=== PATIENT | female | born 1985 | race Caucasian/White ===

== ENCOUNTER 2018-08-27 20:41 | Inpatient (IN) | payer OTHER, BC ==
[~2018-08-27] VITALS: Ht 165.1 cm; Wt 59.6 kg
[2018-08-27] MEDS ORDERED: SODIUM CHLORIDE 0.9% 1,000ML IVBOLUS ONE (21:00)
[2018-08-27] MEDS ORDERED: ONDANSETRON 2MG/ML, 2ML IVPush ONE (21:00)
[2018-08-27] MEDS ORDERED: FAMOTIDINE 20 MG/2 ML IVP ONE (21:00)
--- NOTE | 2018-08-27 21:09 | NUR ---
FIRST CONTACT WITH PT. 32 YR OLD FEMALE HERE WITH C/O N/V/DEHYDRATION x 9 days. DENIES OTHER S/S AT THIS TIME. PT AOX4. RESPS EVEN AND UNLABORED. CALL LIGHT WITHIN REACH. WARM BLANKET PROVIDED.
--- NOTE | 2018-08-27 21:33 | NUR ---
EDMD AT BED SIDE. PT RESTING IN [facility]. AOX4. RESPS EVEN AND UNLABORED. CALL LIGHT WITHIN REACH. DENIES ANY NEEDS AND CONCERNS AT THIS TIME.
[2018-08-27] MEDS ORDERED: NS + 20MEQ KCL 1,000 ML IV SCH (21:44)
[2018-08-27] MEDS ORDERED: FAMOTIDINE 20 MG/2 ML ONE (21:44)
[2018-08-27] MEDS ORDERED: POLYETHYLENE GLYCOL 17 GM PACKET PO PRN (22:00)
[2018-08-27] MEDS ORDERED: PROMETHAZINE 25 MG/ML, 1ML IM PRN (22:00)
[2018-08-27] MEDS ORDERED: DOCUSATE 100 MG CAPSULE PO PRN (22:00)
[2018-08-27] MEDS: ENOXAPARIN 40 MG/0.4 ML SQ SCH (22:00)
[2018-08-27] MEDS ORDERED: ZIPRASIDONE 20MG CAPSULE PO PRN (22:00)
--- NOTE | 2018-08-27 22:06 | NUR ---
REPORT GIVEN TO ALEXANDRU ALVES
[2018-08-27] MEDS ORDERED: ONDA8TAB9 PO (22:10)
--- NOTE | 2018-08-27 22:20 | NUR ---
PT'S PIV (PLACED ACCOUNT MANAGER TRAINEE) PATENT AND TOLERATING FLUSH WITH NO S/SX INFILTRATION. AFTER PEPCID ADMIN, PIV SITE BECAME SWOLLEN AND PAINFUL. PIV REMOVED. WARM COMPRESS APPLIED. NEW PIV PLACED, COBAN/PAPER TAPE/STERILE GAUZE DRESSING APPLIED (PT ALLERGIC TO ADHESIVE TAPE AND TEGADERM). NS BOLUS INFUSING IN NEW PIV, NO S/SX INFILTRATION. ALEXANDRU PARRISH CALLED TO GIVE UPDATED REPORT.
--- NOTE | 2018-08-27 22:27 | NUR ---
PER ADAM OSHEA, NO EKG INDICATED FOR PT C/O EPIGASTRIC PAIN. EKG TAKEN USER SUPPORT ANALYST SUPERVISOR AT [facility], REVEIWED BY ADAM OSHEA.
[2018-08-27] MEDS ORDERED: SUMA50TA3 PO (23:21)
[2018-08-27] MEDS ORDERED: FLUT9.9S NS (23:21)
[2018-08-27 23:22] VITALS: BP 118/81
[2018-08-28 02:15] VITALS: BP 110/73
[2018-08-28 05:27] LABS: BASOPHILS # (AUTO) 0.03 x10^3/uL (0-0.1); BASOPHILS % (AUTO) 0 % (0-1); EOSINOPHILS # (AUTO) 0.14 x10^3/uL (0-0.4); EOSINOPHILS % (AUTO) 2 % (1-7); LYMPHOCYTES # (AUTO) 2.71 x10^3/uL (1-3.4); LYMPHOCYTES % (AUTO) 46 % (22-44); MD NO; MEAN CORPUSCULAR HEMOGLOBIN 31.4 pg (27.0-34.8); MEAN CORPUSCULAR HGB CONC 34.4 g/dL (32.4-35.8); MEAN CORPUSCULAR VOLUME 91.3 fL (80-100); MEAN PLATELET VOLUME 8.2 fL (7.4-10.4); MONOCYTES % (AUTO) 10 % (2-9); NEUTROPHILS # (AUTO) 2.36 x10^3/uL (1.8-6.8); NEUTROPHILS % (AUTO) 41 % (42-75); PLATELET COUNT 165 x10^3/uL (130-400); RED BLOOD COUNT 4.07 x10^6/uL (3.82-5.3)
[2018-08-28 05:30] LABS: ANION GAP 9 mmol/L (5-15); CALCIUM 7.5 mg/dL (8.5-10.1); CHLORIDE 112 mmol/L (98-107)
[2018-08-28 05:31] LABS: CREATININE 0.57 mg/dL (0.55-1.02)
[2018-08-28 08:19] VITALS: BP 104/66
[2018-08-28] MEDS ORDERED: MAGNESIUM SULFATE PMX 2GM/50ML 50 ML IV ONE (09:00)
[2018-08-28] MEDS: ONDANSETRON 2MG/ML, 2ML IVPush PRN ×3 (09:48→23:43)
[2018-08-28] MEDS: FAMOTIDINE 20 MG TABLET PO SCH ×2 (09:48→20:27)
[2018-08-28 13:13] VITALS: BP 111/74
[2018-08-28] MEDS: D5%-0.45% NACL 1,000 ML IV SCH (16:24)
[2018-08-28 20:08] VITALS: BP 106/65
[2018-08-28] MEDS: ENOXAPARIN 40 MG/0.4 ML SQ SCH (21:22)
[2018-08-28 21:58] LABS: MICROSCOPIC NOT IND
[2018-08-28 22:02] LABS: CULTURE INDICATED? NO
[2018-08-29 01:44] VITALS: BP 115/79
[2018-08-29] MEDS: D5%-0.45% NACL 1,000 ML IV SCH ×2 (04:48→18:12)
[2018-08-29 06:07] LABS: ALANINE AMINOTRANSFERASE 75 U/L (12-78); ALBUMIN 2.4 g/dL (3.4-5.0); ANION GAP 9 mmol/L (5-15); CALCIUM 7.5 mg/dL (8.5-10.1); CHLORIDE 112 mmol/L (98-107); CREATININE 0.49 mg/dL (0.55-1.02)
[2018-08-29 06:10] LABS: ALKALINE PHOSPHATASE 76 U/L (45-117); BILIRUBIN,TOTAL 0.6 mg/dL (0.2-1.0); TOTAL PROTEIN 4.7 g/dL (6.4-8.2)
[2018-08-29 07:31] VITALS: BP 100/66
[2018-08-29] MEDS: FAMOTIDINE 20 MG TABLET PO SCH ×2 (08:27→21:35)
[2018-08-29] MEDS: ONDANSETRON 2MG/ML, 2ML IVPush PRN (09:29)
[2018-08-29] MEDS ORDERED: ONDANSETRON ODT 8 MG PO ONE (11:00)
[2018-08-29] MEDS ORDERED: SODIUM BICARB 8.4%, 50ML SYRINGE ONE (11:35)
[2018-08-29] MEDS ORDERED: EPINEPHRINE SYRINGE 0.1 MG/ML, 10ML ONE (11:35)
[2018-08-29] MEDS ORDERED: PROPOFOL 100 ML IV ONE (12:04)
[2018-08-29 12:17] LABS: MD YES; MEAN CORPUSCULAR HEMOGLOBIN 30.3 pg (27.0-34.8); MEAN CORPUSCULAR HGB CONC 33.1 g/dL (32.4-35.8); MEAN CORPUSCULAR VOLUME 91.4 fL (80-100); MEAN PLATELET VOLUME 8.6 fL (7.4-10.4); PLATELET COUNT 132 x10^3/uL (130-400); RED BLOOD COUNT 4.61 x10^6/uL (3.82-5.3); RED CELL DISTRIBUTION WIDTH 14.1 % (9.6-15.2)
[2018-08-29 12:19] LABS: ALANINE AMINOTRANSFERASE 218 U/L (12-78); ALBUMIN 2.3 g/dL (3.4-5.0); ANION GAP 11 mmol/L (5-15); CALCIUM 7.1 mg/dL (8.5-10.1); CHLORIDE 111 mmol/L (98-107); CREATININE 0.71 mg/dL (0.55-1.02)
[2018-08-29 12:24] LABS: ALKALINE PHOSPHATASE 80 U/L (45-117); BILIRUBIN,TOTAL 0.5 mg/dL (0.2-1.0); TOTAL PROTEIN 4.5 g/dL (6.4-8.2); TROPONIN I 0.034 ng/mL (0.000-0.045)
[2018-08-29 12:48] LABS: <PLATELET ESTIMATE> ADEQUATE; <PLT MORPHOLOGY> NORMAL PLT MORPH; <RBC MORPHOLOGY> NORMAL; EOS#(MANUAL) 0.07 x10^3/uL (0.0-0.4); EOS% (MANUAL) 1 % (1-7); LYMPH#(MANUAL) 5.95 x10^3/uL (1-3.4); LYMPHS% (MANUAL) 85 % (22-44); MONOS#(MANUAL) 0.14 x10^3/uL (0.3-2.7); MONOS% (MANUAL) 2 % (2-9); REACTIVE LYMPHS # (MANUAL) 0.42 x10^3/uL (0-0); REACTIVE LYMPHS % (MANUAL) 6 % (0-0); SEG#(MANUAL) 0.42 x10^3/uL (1.8-6.8); SEGS% (MANUAL) 6 % (42-75)
[2018-08-29 13:00] LABS: AMPHETAMINE SCREEN, URINE Negative (Negative); BARBITURATE SCREEN, URINE Negative (Negative); BENZODIAZEPINE SCREEN, URINE Negative (Negative); CANNABINOID SCREEN, URINE Positive (Negative); COCAINE SCREEN, URINE Negative (Negative); METHADONE SCREEN, URINE Negative (Negative); OPIATE SCREEN, URINE Negative (Negative)
[2018-08-29] MEDS ORDERED: DEXMEDETOMIDINE 200 MCG in SODIUM CHLORIDE 0.9% 48 ML IV PRN (13:07)
[2018-08-29] MEDS ORDERED: SODIUM PHOSPHATE 20 MMOL in SODIUM CHLORIDE 0.9% 250 ML IVPB PRN (13:07)
[2018-08-29] MEDS ORDERED: PROPOFOL 100 ML IV PRN (13:07)
[2018-08-29] MEDS ORDERED: MIDAZOLAM HCL 25 MG in SODIUM CHLORIDE 0.9% 245 ML IV PRN (13:07)
[2018-08-29] MEDS: METRONIDAZOLE PMX 500MG/100ML 100 ML IV SCH ×2 (13:11→20:42)
[2018-08-29] MEDS: CALCIUM CHLORIDE 13.6 MEQ in DEXTROSE 5% 100 ML IVPB SCH ×2 (13:30→19:30)
[2018-08-29] MEDS ORDERED: VECURONIUM 10 MG IVPush PRN (13:30)
[2018-08-29] MEDS ORDERED: MIDAZOLAM 1 MG/ML, 2ML IVPush PRN (13:30)
[2018-08-29] MEDS: KSCALE TO 4.0 IV SCH ×3 (13:30→21:27)
[2018-08-29] MEDS: ARTIFICIAL TEARS OINT 3.5 GM EACHEYE SCH ×2 (13:30→21:56)
[2018-08-29] MEDS ORDERED: LIDOCAINE-MPF 1%, 2ML ENDO PRN (13:30)
[2018-08-29] MEDS ORDERED: SENNA/DOCUSATE TABLET NG PRN (13:30)
[2018-08-29] MEDS ORDERED: PHARMACY MAY ADJ FOR RENAL FX MC SCH (13:30)
[2018-08-29] MEDS: LORazepam 2 MG/ML, 1ML IVPush PRN (13:36)
[2018-08-29 13:51] LABS: MICROSCOPIC INDICATED
[2018-08-29] MEDS ORDERED: MAGNESIUM SULFATE 4 GM in SODIUM CHLORIDE 0.9% 100 ML IV ONE (14:00)
[2018-08-29 14:13] LABS: AMPHETAMINE SCREEN, URINE Negative (Negative); BARBITURATE SCREEN, URINE Negative (Negative); BENZODIAZEPINE SCREEN, URINE Negative (Negative); CANNABINOID SCREEN, URINE Positive (Negative); COCAINE SCREEN, URINE Negative (Negative); METHADONE SCREEN, URINE Negative (Negative); OPIATE SCREEN, URINE Negative (Negative)
[2018-08-29] MEDS ORDERED: POTASSIUM CHLORIDE PMX 100 ML IV ONE ×3 (14:30→22:00)
[2018-08-29] MEDS: BUSPIRONE 10 MG TABLET NG SCH ×2 (15:42→21:34)
[2018-08-29] MEDS: LEVETIRACETAM 1,000 MG in SODIUM CHLORIDE 0.9% 100 ML IV SCH ×2 (15:50→23:20)
[2018-08-29] MEDS: CEFTRIAXONE PMX 1GM/50ML 50 ML IV SCH (16:29)
[2018-08-29] MEDS: ALBUTEROL/IPRATROPIUM 2.5MG/0.5MG, 3 ML INLINE SCH ×3 (17:30→22:40)
[2018-08-29] MEDS: PROPOFOL 100 ML IV PRN ×2 (17:38→23:20)
[2018-08-29] MEDS ORDERED: POTASSIUM CHLORIDE 30 MEQ in SODIUM CHLORIDE 0.9% 100 ML IV ONE (18:00)
[2018-08-29] MEDS ORDERED: REGULAR INSULIN 62.5 UNITS in SODIUM CHLORIDE 0.9% 249.375 ML IV PRN (18:30)
[2018-08-29 20:00] LABS: FIO2 40 %
[2018-08-29] MEDS: ENOXAPARIN 40 MG/0.4 ML SQ SCH (21:35)
[2018-08-29] MEDS: FENTANYL PF 100 MCG/2ML IVPush PRN (22:30)
[2018-08-30 00:40] LABS: TROPONIN I 0.686 ng/mL (0.000-0.045)
[2018-08-30] MEDS ORDERED: POTASSIUM CHLORIDE PMX 100 ML IV ONE ×6 (01:30→21:30)
[2018-08-30] MEDS: CALCIUM CHLORIDE 13.6 MEQ in DEXTROSE 5% 100 ML IVPB SCH ×4 (01:30→19:30)
[2018-08-30] MEDS: KSCALE TO 4.0 IV SCH ×6 (01:30→21:30)
[2018-08-30] MEDS: ALBUTEROL/IPRATROPIUM 2.5MG/0.5MG, 3 ML INLINE SCH ×6 (02:50→22:50)
[2018-08-30] MEDS: METRONIDAZOLE PMX 500MG/100ML 100 ML IV SCH ×3 (03:52→19:36)
[2018-08-30] MEDS: PROPOFOL 100 ML IV PRN ×5 (03:52→23:33)
[2018-08-30 04:00] VITALS: BP_SYST 102; BP_SYST 95; BP_DIAS 60; BP_DIAS 69
[2018-08-30] MEDS: NOREPINEPHRINE 4 MG in SODIUM CHLORIDE 0.9% 246 ML IV PRN ×2 (04:51→18:30)
[2018-08-30 05:39] LABS: BASOPHILS # (AUTO) 0.02 x10^3/uL (0-0.1); BASOPHILS % (AUTO) 0 % (0-1); EOSINOPHILS # (AUTO) 0.01 x10^3/uL (0-0.4); EOSINOPHILS % (AUTO) 0 % (1-7); LYMPHOCYTES # (AUTO) 1.11 x10^3/uL (1-3.4); LYMPHOCYTES % (AUTO) 19 % (22-44); MD NO; MEAN CORPUSCULAR HEMOGLOBIN 30.5 pg (27.0-34.8); MEAN CORPUSCULAR HGB CONC 33.5 g/dL (32.4-35.8); MEAN CORPUSCULAR VOLUME 91.1 fL (80-100); MONOCYTES # (AUTO) 0.39 x10^3/uL (0.2-0.8); MONOCYTES % (AUTO) 7 % (2-9); NEUTROPHILS # (AUTO) 4.32 x10^3/uL (1.8-6.8); NEUTROPHILS % (AUTO) 74 % (42-75); PLATELET COUNT 119 x10^3/uL (130-400); RED BLOOD COUNT 4.03 x10^6/uL (3.82-5.3); RED CELL DISTRIBUTION WIDTH 13.9 % (9.6-15.2)
[2018-08-30] MEDS: BUSPIRONE 10 MG TABLET NG SCH ×3 (05:43→21:36)
[2018-08-30] MEDS: ARTIFICIAL TEARS OINT 3.5 GM EACHEYE SCH ×3 (05:43→19:51)
[2018-08-30 05:53] LABS: CHLORIDE 115 mmol/L (98-107)
[2018-08-30 06:08] LABS: ALANINE AMINOTRANSFERASE 188 U/L (12-78); ALBUMIN 2.3 g/dL (3.4-5.0); ALKALINE PHOSPHATASE 79 U/L (45-117); ANION GAP 8 mmol/L (5-15); CALCIUM 6.4 mg/dL (8.5-10.1); CREATININE 0.29 mg/dL (0.55-1.02); TOTAL PROTEIN 4.4 g/dL (6.4-8.2)
[2018-08-30] MEDS: MAGNESIUM SULFATE 1 GM in SODIUM CHLORIDE 0.9% 50 ML IVPB PRN ×2 (06:35→10:59)
[2018-08-30] MEDS: FAMOTIDINE 20 MG TABLET PO SCH (09:00)
[2018-08-30] MEDS ORDERED: PANTOPRAZOLE 40 MG IV IV SCH (09:00)
[2018-08-30] MEDS: FENTANYL PF 250 MCG in SODIUM CHLORIDE 0.9% 250 ML IV PRN ×2 (10:23→20:02)
[2018-08-30] MEDS ORDERED: GLUCAGON 1 MG IM PRN (10:30)
[2018-08-30] MEDS ORDERED: DEXTROSE 50%, 50ML SYRINGE IVPush PRN (10:30)
[2018-08-30] MEDS: INSULIN LISPRO 100 UNITS/ML, PEN SQ-INSULIN SCH ×3 (14:00→20:43)
[2018-08-30] MEDS: LEVETIRACETAM 1,000 MG in SODIUM CHLORIDE 0.9% 100 ML IV SCH ×2 (14:16→23:33)
[2018-08-30] MEDS: D5%-0.45% NACL 1,000 ML IV SCH (14:19)
[2018-08-30] MEDS: CEFTRIAXONE PMX 1GM/50ML 50 ML IV SCH (17:52)
[2018-08-30] MEDS: SODIUM CHLORIDE FLUSH 10ML SYR IVF SCH (19:36)
[2018-08-30] MEDS: FAMOTIDINE 20 MG/2 ML IVPush SCH (19:36)
[2018-08-30] MEDS: ENOXAPARIN 40 MG/0.4 ML SQ SCH (21:36)
[2018-08-31] MEDS: INSULIN LISPRO 100 UNITS/ML, PEN SQ-INSULIN SCH ×6 (00:59→22:00)
[2018-08-31] MEDS: CALCIUM CHLORIDE 13.6 MEQ in DEXTROSE 5% 100 ML IVPB SCH ×4 (01:30→20:49)
[2018-08-31] MEDS: KSCALE TO 4.0 IV SCH ×6 (01:30→21:30)
[2018-08-31] MEDS: D5%-0.45% NACL 1,000 ML IV SCH ×3 (01:31→20:28)
[2018-08-31] MEDS: FENTANYL PF 250 MCG in SODIUM CHLORIDE 0.9% 245 ML IV PRN ×2 (01:32→05:34)
[2018-08-31] MEDS: MAGNESIUM SULFATE 1 GM in SODIUM CHLORIDE 0.9% 50 ML IVPB PRN ×3 (01:49→19:04)
[2018-08-31] MEDS ORDERED: POTASSIUM CHLORIDE PMX 100 ML IV ONE ×4 (02:00→18:30)
[2018-08-31] MEDS: ALBUTEROL/IPRATROPIUM 2.5MG/0.5MG, 3 ML INLINE SCH ×6 (02:40→23:00)
[2018-08-31] MEDS: METRONIDAZOLE PMX 500MG/100ML 100 ML IV SCH ×3 (03:24→19:43)
[2018-08-31] MEDS: ARTIFICIAL TEARS OINT 3.5 GM EACHEYE SCH ×3 (04:41→20:27)
[2018-08-31] MEDS: BUSPIRONE 10 MG TABLET NG SCH ×3 (04:45→20:27)
[2018-08-31 05:17] LABS: ANION GAP 8 mmol/L (5-15); CALCIUM 7.1 mg/dL (8.5-10.1); CHLORIDE 119 mmol/L (98-107); CREATININE 0.43 mg/dL (0.55-1.02)
[2018-08-31 05:23] LABS: BASOPHILS # (AUTO) 0.04 x10^3/uL (0-0.1); BASOPHILS % (AUTO) 1 % (0-1); EOSINOPHILS # (AUTO) 0.36 x10^3/uL (0-0.4); EOSINOPHILS % (AUTO) 5 % (1-7); LYMPHOCYTES # (AUTO) 1.45 x10^3/uL (1-3.4); LYMPHOCYTES % (AUTO) 18 % (22-44); MD NO; MEAN CORPUSCULAR HEMOGLOBIN 30.8 pg (27.0-34.8); MEAN CORPUSCULAR HGB CONC 33.3 g/dL (32.4-35.8); MEAN CORPUSCULAR VOLUME 92.7 fL (80-100); MEAN PLATELET VOLUME 8.6 fL (7.4-10.4); MONOCYTES # (AUTO) 0.48 x10^3/uL (0.2-0.8); MONOCYTES % (AUTO) 6 % (2-9); NEUTROPHILS # (AUTO) 5.71 x10^3/uL (1.8-6.8); NEUTROPHILS % (AUTO) 71 % (42-75); PLATELET COUNT 137 x10^3/uL (130-400); RED BLOOD COUNT 4.06 x10^6/uL (3.82-5.3); RED CELL DISTRIBUTION WIDTH 14.6 % (9.6-15.2)
[2018-08-31] MEDS: SODIUM CHLORIDE FLUSH 10ML SYR IVF SCH ×2 (09:22→20:27)
[2018-08-31] MEDS: FAMOTIDINE 20 MG/2 ML IVPush SCH ×2 (09:22→20:27)
[2018-08-31] MEDS: PROPOFOL 100 ML IV PRN ×3 (09:29→20:27)
[2018-08-31] MEDS ORDERED: GADOBUTROL 7.5 MMOL/7.5 ML PFS ONE (14:38)
[2018-08-31] MEDS: LEVETIRACETAM 1,000 MG in SODIUM CHLORIDE 0.9% 100 ML IV SCH (15:38)
[2018-08-31] MEDS: CEFTRIAXONE PMX 1GM/50ML 50 ML IV SCH (15:40)
[2018-09-01] MEDS: LEVETIRACETAM 1,000 MG in SODIUM CHLORIDE 0.9% 100 ML IV SCH (00:59)
[2018-09-01] MEDS: KSCALE TO 4.0 IV SCH ×2 (01:30→05:30)
[2018-09-01] MEDS: CALCIUM CHLORIDE 13.6 MEQ in DEXTROSE 5% 100 ML IVPB SCH ×2 (01:55→05:38)
[2018-09-01] MEDS ORDERED: MAGNESIUM SULFATE 1 GM in SODIUM CHLORIDE 0.9% 50 ML IV ONE ×2 (02:00→05:30)
[2018-09-01] MEDS: INSULIN LISPRO 100 UNITS/ML, PEN SQ-INSULIN SCH ×6 (02:00→21:33)
[2018-09-01] MEDS: ALBUTEROL/IPRATROPIUM 2.5MG/0.5MG, 3 ML INLINE SCH ×6 (02:30→23:03)
[2018-09-01] MEDS ORDERED: POTASSIUM CHLORIDE PMX 100 ML IV ONE (02:30)
[2018-09-01] MEDS: PROPOFOL 100 ML IV PRN ×2 (02:53→04:40)
[2018-09-01] MEDS: ARTIFICIAL TEARS OINT 3.5 GM EACHEYE SCH ×3 (04:00→21:29)
[2018-09-01] MEDS: METRONIDAZOLE PMX 500MG/100ML 100 ML IV SCH ×3 (04:00→19:38)
[2018-09-01] MEDS: BUSPIRONE 10 MG TABLET NG SCH (04:01)
[2018-09-01] MEDS: HEPARIN 5,000 UNITS/ML, 1ML SQ SCH ×3 (04:40→21:29)
[2018-09-01 05:09] LABS: BASOPHILS # (AUTO) 0.04 x10^3/uL (0-0.1); BASOPHILS % (AUTO) 1 % (0-1); EOSINOPHILS # (AUTO) 0.16 x10^3/uL (0-0.4); EOSINOPHILS % (AUTO) 3 % (1-7); LYMPHOCYTES # (AUTO) 1.92 x10^3/uL (1-3.4); LYMPHOCYTES % (AUTO) 34 % (22-44); MD NO; MEAN CORPUSCULAR HEMOGLOBIN 30.7 pg (27.0-34.8); MEAN CORPUSCULAR HGB CONC 33.9 g/dL (32.4-35.8); MEAN CORPUSCULAR VOLUME 90.4 fL (80-100); MEAN PLATELET VOLUME 8.6 fL (7.4-10.4); MONOCYTES # (AUTO) 0.35 x10^3/uL (0.2-0.8); MONOCYTES % (AUTO) 6 % (2-9); NEUTROPHILS # (AUTO) 3.15 x10^3/uL (1.8-6.8); NEUTROPHILS % (AUTO) 56 % (42-75); PLATELET COUNT 140 x10^3/uL (130-400); RED BLOOD COUNT 4.18 x10^6/uL (3.82-5.3); RED CELL DISTRIBUTION WIDTH 14.6 % (9.6-15.2)
[2018-09-01 05:13] LABS: ANION GAP 9 mmol/L (5-15); CALCIUM 8.3 mg/dL (8.5-10.1); CHLORIDE 117 mmol/L (98-107); CREATININE 0.47 mg/dL (0.55-1.02); TRIGLYCERIDES 81 mg/dL (50-200)
[2018-09-01] MEDS: MAGNESIUM SULFATE 1 GM in SODIUM CHLORIDE 0.9% 50 ML IVPB PRN ×4 (05:38→05:58)
[2018-09-01] MEDS: D5%-0.45% NACL 1,000 ML IV SCH ×3 (05:44→21:33)
[2018-09-01 06:00] VITALS: BP 125/85
[2018-09-01] MEDS ORDERED: QUETIAPINE 25MG TABLET PO SCH (07:30)
[2018-09-01] MEDS: DEXMEDETOMIDINE 200 MCG in SODIUM CHLORIDE 0.9% 48 ML IV PRN ×3 (08:54→19:39)
[2018-09-01] MEDS: CALCIUM CARBONATE 500 MG TAB.CHEW PO SCH ×3 (09:48→19:41)
[2018-09-01] MEDS: FAMOTIDINE 20 MG/2 ML IVPush SCH ×2 (09:48→21:28)
[2018-09-01] MEDS: SODIUM CHLORIDE FLUSH 10ML SYR IVF SCH ×2 (09:49→19:39)
[2018-09-01] MEDS: NOREPINEPHRINE 4 MG in SODIUM CHLORIDE 0.9% 246 ML IV PRN (13:18)
[2018-09-01] MEDS: CEFTRIAXONE PMX 1GM/50ML 50 ML IV SCH (15:44)
[2018-09-02] MEDS: CALCIUM CARBONATE 500 MG TAB.CHEW PO SCH ×4 (01:20→20:58)
[2018-09-02] MEDS: INSULIN LISPRO 100 UNITS/ML, PEN SQ-INSULIN SCH ×6 (02:00→21:03)
[2018-09-02] MEDS: ALBUTEROL/IPRATROPIUM 2.5MG/0.5MG, 3 ML INLINE SCH ×6 (03:09→22:16)
[2018-09-02] MEDS: METRONIDAZOLE PMX 500MG/100ML 100 ML IV SCH ×3 (04:00→20:59)
[2018-09-02] MEDS: ARTIFICIAL TEARS OINT 3.5 GM EACHEYE SCH (04:00)
[2018-09-02] MEDS: NOREPINEPHRINE 4 MG in SODIUM CHLORIDE 0.9% 246 ML IV PRN (04:01)
[2018-09-02] MEDS: D5%-0.45% NACL 1,000 ML IV SCH ×2 (05:02→14:01)
[2018-09-02] MEDS: HEPARIN 5,000 UNITS/ML, 1ML SQ SCH ×3 (05:03→20:59)
[2018-09-02 05:36] LABS: BASOPHILS # (AUTO) 0.02 x10^3/uL (0-0.1); BASOPHILS % (AUTO) 0 % (0-1); EOSINOPHILS # (AUTO) 0.22 x10^3/uL (0-0.4); EOSINOPHILS % (AUTO) 4 % (1-7); LYMPHOCYTES % (AUTO) 21 % (22-44); MD NO; MEAN CORPUSCULAR HEMOGLOBIN 31.3 pg (27.0-34.8); MEAN CORPUSCULAR HGB CONC 34.4 g/dL (32.4-35.8); MEAN CORPUSCULAR VOLUME 91.1 fL (80-100); MEAN PLATELET VOLUME 8.2 fL (7.4-10.4); MONOCYTES # (AUTO) 0.51 x10^3/uL (0.2-0.8); MONOCYTES % (AUTO) 8 % (2-9); NEUTROPHILS # (AUTO) 4.11 x10^3/uL (1.8-6.8); NEUTROPHILS % (AUTO) 67 % (42-75); PLATELET COUNT 140 x10^3/uL (130-400); RED BLOOD COUNT 3.79 x10^6/uL (3.82-5.3); RED CELL DISTRIBUTION WIDTH 14.6 % (9.6-15.2)
[2018-09-02 05:48] LABS: ANION GAP 9 mmol/L (5-15); CALCIUM 7.3 mg/dL (8.5-10.1); CHLORIDE 110 mmol/L (98-107); CREATININE 0.44 mg/dL (0.55-1.02)
[2018-09-02] MEDS ORDERED: MAGNESIUM SULFATE PMX 2GM/50ML 50 ML IV ONE ×2 (06:00→08:00)
[2018-09-02] MEDS ORDERED: MAGNESIUM SULFATE PMX 4GM/100M 100 ML IV ONE (07:30)
[2018-09-02] MEDS: DEXMEDETOMIDINE 200 MCG in SODIUM CHLORIDE 0.9% 48 ML IV PRN ×2 (08:05→21:03)
[2018-09-02] MEDS: FAMOTIDINE 20 MG/2 ML IVPush SCH ×2 (08:48→20:59)
[2018-09-02] MEDS: MIDODRINE 5 MG TABLET PO SCH ×3 (08:49→20:58)
[2018-09-02] MEDS: SODIUM CHLORIDE FLUSH 10ML SYR IVF SCH ×2 (11:24→20:58)
[2018-09-02] MEDS: CEFTRIAXONE PMX 1GM/50ML 50 ML IV SCH (15:07)
[2018-09-03] MEDS: INSULIN LISPRO 100 UNITS/ML, PEN SQ-INSULIN SCH ×6 (01:34→19:40)
[2018-09-03] MEDS: CALCIUM CARBONATE 500 MG TAB.CHEW PO SCH ×4 (01:34→19:30)
[2018-09-03] MEDS: ALBUTEROL/IPRATROPIUM 2.5MG/0.5MG, 3 ML INLINE SCH ×6 (02:23→22:13)
[2018-09-03] MEDS: D5%-0.45% NACL 1,000 ML IV SCH ×3 (03:04→21:43)
[2018-09-03] MEDS: METRONIDAZOLE PMX 500MG/100ML 100 ML IV SCH ×3 (04:48→19:39)
[2018-09-03] MEDS: HEPARIN 5,000 UNITS/ML, 1ML SQ SCH ×3 (04:55→22:32)
[2018-09-03 05:17] LABS: BASOPHILS # (AUTO) 0.01 x10^3/uL (0-0.1); BASOPHILS % (AUTO) 0 % (0-1); EOSINOPHILS # (AUTO) 0.08 x10^3/uL (0-0.4); EOSINOPHILS % (AUTO) 1 % (1-7); LYMPHOCYTES # (AUTO) 1.37 x10^3/uL (1-3.4); LYMPHOCYTES % (AUTO) 24 % (22-44); MD NO; MEAN CORPUSCULAR HEMOGLOBIN 30.5 pg (27.0-34.8); MEAN CORPUSCULAR HGB CONC 33.7 g/dL (32.4-35.8); MEAN CORPUSCULAR VOLUME 90.4 fL (80-100); MEAN PLATELET VOLUME 7.8 fL (7.4-10.4); MONOCYTES # (AUTO) 0.33 x10^3/uL (0.2-0.8); MONOCYTES % (AUTO) 6 % (2-9); NEUTROPHILS # (AUTO) 3.84 x10^3/uL (1.8-6.8); NEUTROPHILS % (AUTO) 68 % (42-75); PLATELET COUNT 133 x10^3/uL (130-400); RED BLOOD COUNT 3.58 x10^6/uL (3.82-5.3); RED CELL DISTRIBUTION WIDTH 14.3 % (9.6-15.2)
[2018-09-03 05:29] LABS: ANION GAP 8 mmol/L (5-15); CALCIUM 7.2 mg/dL (8.5-10.1); CHLORIDE 110 mmol/L (98-107); CREATININE 0.41 mg/dL (0.55-1.02)
[2018-09-03] MEDS: MIDODRINE 5 MG TABLET PO SCH ×3 (08:35→20:00)
[2018-09-03] MEDS: SODIUM CHLORIDE FLUSH 10ML SYR IVF SCH ×2 (08:35→19:40)
[2018-09-03] MEDS: FAMOTIDINE 20 MG/2 ML IVPush SCH ×2 (08:35→19:40)
[2018-09-03 08:38] LABS: ALANINE AMINOTRANSFERASE 55 U/L (12-78); ALBUMIN 1.8 g/dL (3.4-5.0)
[2018-09-03 08:39] LABS: ALKALINE PHOSPHATASE 89 U/L (45-117); BILIRUBIN,TOTAL 0.3 mg/dL (0.2-1.0); TOTAL PROTEIN 3.8 g/dL (6.4-8.2)
--- NOTE | 2018-09-03 10:00 | NUR ---
TF GOAL: PROMOTE @ 65ML/HR
[2018-09-03] MEDS: CEFTRIAXONE PMX 1GM/50ML 50 ML IV SCH (15:37)
[2018-09-03] MEDS: FENTANYL PF 100 MCG/2ML IVPush PRN (21:44)
[2018-09-03] MEDS: LORazepam 2 MG/ML, 1ML IVPush PRN (22:31)
[2018-09-04] MEDS: CALCIUM CARBONATE 500 MG TAB.CHEW PO SCH (01:30)
[2018-09-04] MEDS: INSULIN LISPRO 100 UNITS/ML, PEN SQ-INSULIN SCH ×6 (02:00→20:08)
[2018-09-04] MEDS: ALBUTEROL/IPRATROPIUM 2.5MG/0.5MG, 3 ML INLINE SCH ×6 (02:14→22:50)
[2018-09-04] MEDS: METRONIDAZOLE PMX 500MG/100ML 100 ML IV SCH ×3 (04:47→20:38)
[2018-09-04 05:11] LABS: BASOPHILS # (AUTO) 0.02 x10^3/uL (0-0.1); BASOPHILS % (AUTO) 0 % (0-1); EOSINOPHILS # (AUTO) 0.11 x10^3/uL (0-0.4); EOSINOPHILS % (AUTO) 2 % (1-7); LYMPHOCYTES # (AUTO) 1.99 x10^3/uL (1-3.4); LYMPHOCYTES % (AUTO) 38 % (22-44); MD NO; MEAN CORPUSCULAR HEMOGLOBIN 30.9 pg (27.0-34.8); MEAN CORPUSCULAR HGB CONC 34.1 g/dL (32.4-35.8); MEAN CORPUSCULAR VOLUME 90.8 fL (80-100); MEAN PLATELET VOLUME 7.4 fL (7.4-10.4); MONOCYTES # (AUTO) 0.44 x10^3/uL (0.2-0.8); MONOCYTES % (AUTO) 8 % (2-9); NEUTROPHILS # (AUTO) 2.66 x10^3/uL (1.8-6.8); NEUTROPHILS % (AUTO) 51 % (42-75); PLATELET COUNT 147 x10^3/uL (130-400); RED BLOOD COUNT 3.78 x10^6/uL (3.82-5.3); RED CELL DISTRIBUTION WIDTH 14.4 % (9.6-15.2)
[2018-09-04 05:20] LABS: ALBUMIN 2.1 g/dL (3.4-5.0); ANION GAP 8 mmol/L (5-15); CALCIUM 7.9 mg/dL (8.5-10.1); CHLORIDE 107 mmol/L (98-107)
[2018-09-04 05:24] LABS: ALANINE AMINOTRANSFERASE 48 U/L (12-78); ALKALINE PHOSPHATASE 92 U/L (45-117); BILIRUBIN,TOTAL 0.4 mg/dL (0.2-1.0); CREATININE 0.56 mg/dL (0.55-1.02); TOTAL PROTEIN 4.7 g/dL (6.4-8.2); TRIGLYCERIDES 103 mg/dL (50-200)
[2018-09-04] MEDS: HEPARIN 5,000 UNITS/ML, 1ML SQ SCH ×3 (06:01→20:38)
[2018-09-04] MEDS ORDERED: POTASSIUM CHLORIDE 20 MEQ TAB.ER.PRT PO ONE (08:30)
[2018-09-04] MEDS ORDERED: SODIUM CHLORIDE 0.9%, 500ML IVBOLUS ONE (08:30)
[2018-09-04] MEDS ORDERED: MAGNESIUM SULFATE 4 GM in SODIUM CHLORIDE 0.9% 100 ML IV ONE (08:30)
[2018-09-04] MEDS ORDERED: POTASSIUM PHOSPHATE 44 MEQ in SODIUM CHLORIDE 0.9% 500 ML IV ONE (08:30)
[2018-09-04] MEDS: D5%-0.45% NACL 1,000 ML IV SCH ×2 (08:49→15:24)
[2018-09-04] MEDS: FAMOTIDINE 20 MG/2 ML IVPush SCH (08:49)
[2018-09-04] MEDS: MIDODRINE 5 MG TABLET PO SCH ×3 (09:00→20:39)
[2018-09-04] MEDS: SODIUM CHLORIDE FLUSH 10ML SYR IVF SCH ×2 (09:00→20:08)
[2018-09-04] MEDS: LORazepam 2 MG/ML, 1ML IVPush PRN (10:02)
[2018-09-04] MEDS: FENTANYL PF 100 MCG/2ML IVPush PRN (10:02)
[2018-09-04] MEDS: KSCALE TO 4.0 IV SCH ×2 (13:00→19:00)
[2018-09-04] MEDS ORDERED: METOPROLOL 1 MG/ML, 5ML IVPush ONE (13:00)
[2018-09-04] MEDS ORDERED: POTASSIUM CHLORIDE PMX 100 ML IV ONE (14:30)
[2018-09-04] MEDS ORDERED: OMNIPAQUE 350 MG/ML, 100ML BOTTLE ONE (16:01)
[2018-09-04] MEDS: CEFTRIAXONE PMX 1GM/50ML 50 ML IV SCH (16:09)
[2018-09-04] MEDS: PANTOPRAZOLE 40 MG IV IVPush SCH (20:38)
[2018-09-04 20:53] LABS: ANION GAP 9 mmol/L (5-15); CALCIUM 7.6 mg/dL (8.5-10.1); CHLORIDE 102 mmol/L (98-107); CREATININE 0.45 mg/dL (0.55-1.02)
[2018-09-04] MEDS: METOPROLOL 1 MG/ML, 5ML IVPush PRN (22:04)
[2018-09-05 00:03] LABS: OSMOLALITY,URINE 516 mOsm/kg (500-850)
[2018-09-05] MEDS: D5%-0.45% NACL 1,000 ML IV SCH (00:24)
[2018-09-05] MEDS: KSCALE TO 4.0 IV SCH (01:00)
[2018-09-05] MEDS: INSULIN LISPRO 100 UNITS/ML, PEN SQ-INSULIN SCH ×2 (01:45→06:00)
[2018-09-05] MEDS: ALBUTEROL/IPRATROPIUM 2.5MG/0.5MG, 3 ML INLINE SCH ×6 (01:52→22:10)
[2018-09-05 04:34] LABS: BASOPHILS # (AUTO) 0.03 x10^3/uL (0-0.1); BASOPHILS % (AUTO) 1 % (0-1); EOSINOPHILS # (AUTO) 0.13 x10^3/uL (0-0.4); EOSINOPHILS % (AUTO) 2 % (1-7); LYMPHOCYTES # (AUTO) 2.36 x10^3/uL (1-3.4); LYMPHOCYTES % (AUTO) 36 % (22-44); MD NO; MEAN CORPUSCULAR HEMOGLOBIN 30.7 pg (27.0-34.8); MEAN CORPUSCULAR VOLUME 90.2 fL (80-100); MEAN PLATELET VOLUME 7.3 fL (7.4-10.4); MONOCYTES # (AUTO) 0.55 x10^3/uL (0.2-0.8); MONOCYTES % (AUTO) 8 % (2-9); NEUTROPHILS # (AUTO) 3.47 x10^3/uL (1.8-6.8); NEUTROPHILS % (AUTO) 53 % (42-75); PLATELET COUNT 163 x10^3/uL (130-400); RED BLOOD COUNT 4.37 x10^6/uL (3.82-5.3); RED CELL DISTRIBUTION WIDTH 14.6 % (9.6-15.2)
[2018-09-05 04:38] LABS: ALBUMIN 2.4 g/dL (3.4-5.0); ANION GAP 10 mmol/L (5-15); CALCIUM 7.8 mg/dL (8.5-10.1); CHLORIDE 100 mmol/L (98-107)
[2018-09-05 04:43] LABS: ALANINE AMINOTRANSFERASE 49 U/L (12-78); ALKALINE PHOSPHATASE 109 U/L (45-117); BILIRUBIN,TOTAL 0.4 mg/dL (0.2-1.0); CREATININE 0.62 mg/dL (0.55-1.02); TOTAL PROTEIN 5.7 g/dL (6.4-8.2)
[2018-09-05] MEDS: METRONIDAZOLE PMX 500MG/100ML 100 ML IV SCH (04:46)
[2018-09-05] MEDS: HEPARIN 5,000 UNITS/ML, 1ML SQ SCH ×3 (06:06→21:35)
[2018-09-05] MEDS: METOPROLOL 1 MG/ML, 5ML IVPush PRN ×3 (06:34→21:34)
[2018-09-05] MEDS ORDERED: POTASSIUM CHLORIDE PMX 100 ML IV ONE (07:00)
[2018-09-05] MEDS: SODIUM CHLORIDE 0.9% 1,000 ML IV SCH (08:32)
[2018-09-05] MEDS: SODIUM CHLORIDE FLUSH 10ML SYR IVF SCH ×2 (08:32→20:26)
[2018-09-05] MEDS ORDERED: LIPASE/PROTEASE/AMYLASE TAB JT PRN (10:00)
[2018-09-05] MEDS: PANTOPRAZOLE 40 MG IV IVPush SCH (12:18)
[2018-09-05 13:53] LABS: THYROID STIMULATING HORMONE 3.23 mIU/L (0.358-3.740)
[2018-09-05] MEDS ORDERED: METOPROLOL TARTRATE 25 MG TABLET ONE (15:32)
[2018-09-05] MEDS: SENNOSIDES 8.8 MG/5 ML ORAL SOL NG PRN (15:59)
[2018-09-05] MEDS: ERGOCALCIFEROL 8,000UNIT/ML NG SCH (16:28)
[2018-09-05] MEDS ORDERED: METOPROLOL TARTRATE 25 MG TABLET PO SCH (21:00)
[2018-09-06] MEDS: ALBUTEROL/IPRATROPIUM 2.5MG/0.5MG, 3 ML INLINE SCH ×6 (02:52→22:14)
[2018-09-06 04:51] LABS: ANION GAP 9 mmol/L (5-15); CHLORIDE 99 mmol/L (98-107); CREATININE 0.35 mg/dL (0.55-1.02)
[2018-09-06] MEDS: SODIUM CHLORIDE 0.9% 1,000 ML IV SCH ×2 (05:20→14:20)
[2018-09-06] MEDS: HEPARIN 5,000 UNITS/ML, 1ML SQ SCH ×3 (05:20→21:11)
[2018-09-06 05:34] LABS: BASOPHILS # (AUTO) 0.02 x10^3/uL (0-0.1); BASOPHILS % (AUTO) 0 % (0-1); EOSINOPHILS # (AUTO) 0.08 x10^3/uL (0-0.4); EOSINOPHILS % (AUTO) 1 % (1-7); LYMPHOCYTES # (AUTO) 2.09 x10^3/uL (1-3.4); LYMPHOCYTES % (AUTO) 36 % (22-44); MD NO; MEAN CORPUSCULAR HEMOGLOBIN 30.9 pg (27.0-34.8); MEAN CORPUSCULAR HGB CONC 34.6 g/dL (32.4-35.8); MEAN CORPUSCULAR VOLUME 89.2 fL (80-100); MEAN PLATELET VOLUME 7.4 fL (7.4-10.4); MONOCYTES # (AUTO) 0.33 x10^3/uL (0.2-0.8); MONOCYTES % (AUTO) 6 % (2-9); NEUTROPHILS # (AUTO) 3.25 x10^3/uL (1.8-6.8); NEUTROPHILS % (AUTO) 56 % (42-75); PLATELET COUNT 131 x10^3/uL (130-400); RED BLOOD COUNT 4.14 x10^6/uL (3.82-5.3); RED CELL DISTRIBUTION WIDTH 13.8 % (9.6-15.2)
[2018-09-06] MEDS ORDERED: SODIUM CHLORIDE 0.9% 1,000ML IVBOLUS ONE (07:00)
[2018-09-06] MEDS: SODIUM CHLORIDE FLUSH 10ML SYR IVF SCH ×2 (08:57→21:11)
[2018-09-06] MEDS: LACTULOSE 20 GM/30 ML UDC NG PRN (09:50)
[2018-09-06] MEDS: PANTOPRAZOLE 40 MG IV IVPush SCH (12:23)
[2018-09-06] MEDS ORDERED: SODIUM CHLORIDE 0.9%, 500ML IVBOLUS ONE (12:30)
[2018-09-06] MEDS: MORPHINE SULFATE 4 MG/ML, 1ML IVPush PRN ×2 (14:46→23:52)
[2018-09-06] MEDS ORDERED: DEXAMETHASONE 4 MG/ML, 1ML IVPush SCH (15:00)
[2018-09-06] MEDS: DEXAMETHASONE 10 MG in SODIUM CHLORIDE 0.9% 50 ML IV SCH ×2 (15:09→21:17)
[2018-09-06] MEDS ORDERED: LORazepam 2 MG/ML, 1ML IVPush ONE (15:30)
[2018-09-06] MEDS: LEVETIRACETAM 1,000 MG in SODIUM CHLORIDE 0.9% 100 ML IV SCH (16:45)
[2018-09-06] MEDS: ERGOCALCIFEROL 8,000UNIT/ML NG SCH (16:46)
[2018-09-07] MEDS: DEXAMETHASONE 10 MG in SODIUM CHLORIDE 0.9% 50 ML IV SCH ×2 (01:38→07:56)
[2018-09-07] MEDS: ALBUTEROL/IPRATROPIUM 2.5MG/0.5MG, 3 ML INLINE SCH ×6 (02:20→23:20)
[2018-09-07] MEDS: LEVETIRACETAM 1,000 MG in SODIUM CHLORIDE 0.9% 100 ML IV SCH ×2 (03:02→15:51)
[2018-09-07 04:36] LABS: BASOPHILS # (AUTO) 0.01 x10^3/uL (0-0.1); BASOPHILS % (AUTO) 0 % (0-1); EOSINOPHILS # (AUTO) 0.01 x10^3/uL (0-0.4); EOSINOPHILS % (AUTO) 0 % (1-7); LYMPHOCYTES # (AUTO) 0.81 x10^3/uL (1-3.4); LYMPHOCYTES % (AUTO) 27 % (22-44); MD NO; MEAN CORPUSCULAR HEMOGLOBIN 30.9 pg (27.0-34.8); MEAN CORPUSCULAR HGB CONC 34.2 g/dL (32.4-35.8); MEAN CORPUSCULAR VOLUME 90.3 fL (80-100); MEAN PLATELET VOLUME 7.5 fL (7.4-10.4); MONOCYTES # (AUTO) 0.02 x10^3/uL (0.2-0.8); MONOCYTES % (AUTO) 1 % (2-9); NEUTROPHILS # (AUTO) 2.17 x10^3/uL (1.8-6.8); NEUTROPHILS % (AUTO) 72 % (42-75); PLATELET COUNT 107 x10^3/uL (130-400); RED BLOOD COUNT 4.06 x10^6/uL (3.82-5.3); RED CELL DISTRIBUTION WIDTH 13.5 % (9.6-15.2)
[2018-09-07 04:49] LABS: ANION GAP 10 mmol/L (5-15); CALCIUM 8.3 mg/dL (8.5-10.1); CHLORIDE 106 mmol/L (98-107); CREATININE 0.33 mg/dL (0.55-1.02); TRIGLYCERIDES 166 mg/dL (50-200)
[2018-09-07] MEDS: LACTULOSE 20 GM/30 ML UDC NG PRN (05:17)
[2018-09-07] MEDS: HEPARIN 5,000 UNITS/ML, 1ML SQ SCH ×3 (05:17→22:24)
[2018-09-07] MEDS: MORPHINE SULFATE 4 MG/ML, 1ML IVPush PRN ×2 (06:25→20:39)
[2018-09-07] MEDS: SODIUM CHLORIDE 0.9% 1,000 ML IV SCH (07:22)
[2018-09-07] MEDS: PROPOFOL 100 ML IV PRN (08:21)
[2018-09-07] MEDS ORDERED: SODIUM CHLORIDE 0.9% 1,000ML IV ONE (08:30)
[2018-09-07] MEDS: SODIUM CHLORIDE FLUSH 10ML SYR IVF SCH ×2 (09:07→22:24)
[2018-09-07] MEDS ORDERED: VECURONIUM 10 MG ONE (10:27)
[2018-09-07] MEDS ORDERED: VECURONIUM 10 MG IVPush ONE (10:30)
[2018-09-07 11:32] LABS: HIT RESULT NEGATIVE (NEGATIVE)
[2018-09-07] MEDS: PANTOPRAZOLE 40 MG IV IVPush SCH (13:35)
[2018-09-07] MEDS: BISACODYL 10 MG SUPP PR PRN (15:01)
[2018-09-07] MEDS ORDERED: GADOBUTROL 7.5 MMOL/7.5 ML PFS ONE (15:01)
[2018-09-07] MEDS: ERGOCALCIFEROL 8,000UNIT/ML NG SCH (15:53)
[2018-09-08] MEDS: SODIUM CHLORIDE 0.9% 1,000 ML IV SCH ×2 (01:11→13:08)
[2018-09-08] MEDS: BISACODYL 10 MG SUPP PR PRN (01:11)
[2018-09-08] MEDS: ALBUTEROL/IPRATROPIUM 2.5MG/0.5MG, 3 ML INLINE SCH ×6 (02:33→22:15)
[2018-09-08] MEDS: LEVETIRACETAM 1,000 MG in SODIUM CHLORIDE 0.9% 100 ML IV SCH ×2 (03:28→15:11)
[2018-09-08 04:24] LABS: MEAN CORPUSCULAR HEMOGLOBIN 31.5 pg (27.0-34.8); MEAN CORPUSCULAR HGB CONC 35.5 g/dL (32.4-35.8); MEAN CORPUSCULAR VOLUME 88.8 fL (80-100); RED BLOOD COUNT 3.21 x10^6/uL (3.82-5.3); RED CELL DISTRIBUTION WIDTH 13.7 % (9.6-15.2)
[2018-09-08 04:30] LABS: ANION GAP 10 mmol/L (5-15); CALCIUM 7.9 mg/dL (8.5-10.1); CHLORIDE 113 mmol/L (98-107); CREATININE 0.33 mg/dL (0.55-1.02)
[2018-09-08 04:46] LABS: BASOPHILS # (AUTO) 0.01 x10^3/uL (0-0.1); BASOPHILS % (AUTO) 0 % (0-1); EOSINOPHILS % (AUTO) 1 % (1-7); LYMPHOCYTES % (AUTO) 20 % (22-44); MD SCAN; MEAN PLATELET VOLUME 7.9 fL (7.4-10.4); MONOCYTES # (AUTO) 1.14 x10^3/uL (0.2-0.8); MONOCYTES % (AUTO) 13 % (2-9); NEUTROPHILS # (AUTO) 5.94 x10^3/uL (1.8-6.8); NEUTROPHILS % (AUTO) 66 % (42-75); PLATELET COUNT 102 x10^3/uL (130-400)
[2018-09-08] MEDS: HEPARIN 5,000 UNITS/ML, 1ML SQ SCH (06:37)
[2018-09-08] MEDS ORDERED: MAGNESIUM SULFATE PMX 2GM/50ML 50 ML IV ONE (08:00)
[2018-09-08] MEDS: SODIUM CHLORIDE FLUSH 10ML SYR IVF SCH ×2 (08:30→23:09)
[2018-09-08] MEDS: MORPHINE SULFATE 4 MG/ML, 1ML IVPush PRN (08:30)
[2018-09-08] MEDS: POTASSIUM CHLORIDE 10% 40 MEQ/30 ML UDC PO SCH ×2 (08:30→20:50)
[2018-09-08] MEDS: FENTANYL PF 2,500 MCG in SODIUM CHLORIDE 0.9% 200 ML IV PRN (11:32)
[2018-09-08] MEDS: ENOXAPARIN 60 MG/0.6 ML SQ SCH ×2 (11:33→23:08)
[2018-09-08 12:37] LABS: CHLORIDE,URINE RANDOM 176 mmol/L; POTASSIUM,URINE RANDOM 21 mmol/L; SODIUM,URINE RANDOM 131 mmol/L
[2018-09-08] MEDS: PANTOPRAZOLE 40 MG IV IVPush SCH (13:08)
[2018-09-08 13:25] LABS: OSMOLALITY,URINE 585 mOsm/kg (500-850)
[2018-09-08] MEDS: ERGOCALCIFEROL 8,000UNIT/ML NG SCH (16:20)
[2018-09-09] MEDS: ALBUTEROL/IPRATROPIUM 2.5MG/0.5MG, 3 ML INLINE SCH ×6 (02:59→22:20)
[2018-09-09] MEDS: LEVETIRACETAM 1,000 MG in SODIUM CHLORIDE 0.9% 100 ML IV SCH (03:23)
[2018-09-09 05:19] LABS: ANION GAP 10 mmol/L (5-15); CALCIUM 7.7 mg/dL (8.5-10.1); CHLORIDE 115 mmol/L (98-107); CREATININE 0.28 mg/dL (0.55-1.02)
[2018-09-09 05:45] LABS: BASOPHILS % (AUTO) 0 % (0-1); EOSINOPHILS # (AUTO) 0.04 x10^3/uL (0-0.4); EOSINOPHILS % (AUTO) 1 % (1-7); LYMPHOCYTES # (AUTO) 2.86 x10^3/uL (1-3.4); LYMPHOCYTES % (AUTO) 42 % (22-44); MD MORPH REVIEW ONLY; MEAN CORPUSCULAR VOLUME 88.4 fL (80-100); MEAN PLATELET VOLUME 7.9 fL (7.4-10.4); MONOCYTES # (AUTO) 0.63 x10^3/uL (0.2-0.8); MONOCYTES % (AUTO) 9 % (2-9); NEUTROPHILS # (AUTO) 3.32 x10^3/uL (1.8-6.8); NEUTROPHILS % (AUTO) 49 % (42-75); PLATELET COUNT 51 x10^3/uL (130-400); RED BLOOD COUNT 2.87 x10^6/uL (3.82-5.3); RED CELL DISTRIBUTION WIDTH 13.6 % (9.6-15.2)
[2018-09-09 05:46] LABS: <PLATELET ESTIMATE> DECREASED; <RBC MORPHOLOGY> NORMAL; LARGE PLATELETS 1+
[2018-09-09] MEDS ORDERED: SODIUM CHLORIDE 0.9% 1,000 ML IV SCH (07:00)
[2018-09-09] MEDS ORDERED: MAGNESIUM SULFATE PMX 4GM/100M 100 ML IV ONE (07:30)
[2018-09-09] MEDS: POTASSIUM CHLORIDE 10% 40 MEQ/30 ML UDC PO SCH ×2 (08:47→21:33)
[2018-09-09] MEDS: SODIUM CHLORIDE FLUSH 10ML SYR IVF SCH ×2 (08:48→21:34)
[2018-09-09] MEDS: SODIUM CHLORIDE 0.45% 1,000 ML IV SCH (10:04)
[2018-09-09] MEDS: RANITIDINE 15 MG/ML ORAL SOL NG SCH ×2 (10:05→21:33)
[2018-09-09] MEDS: ARGATROBAN/NACL 50 MG/50 ML 50 ML IV SCH ×3 (10:15→17:02)
[2018-09-09] MEDS: MIDAZOLAM HCL 25 MG in SODIUM CHLORIDE 0.9% 245 ML IV PRN ×2 (11:58→21:33)
[2018-09-09] MEDS: ERGOCALCIFEROL 8,000UNIT/ML NG SCH (16:12)
[2018-09-09 18:23] VITALS: BP 102/62
[2018-09-09 18:40] VITALS: BP 98/60
[2018-09-09 19:15] VITALS: BP 103/63
[2018-09-10] MEDS: ALBUTEROL/IPRATROPIUM 2.5MG/0.5MG, 3 ML INLINE SCH ×6 (02:12→22:18)
[2018-09-10 04:17] LABS: MEAN CORPUSCULAR HEMOGLOBIN 30.8 pg (27.0-34.8); MEAN CORPUSCULAR HGB CONC 34.7 g/dL (32.4-35.8); MEAN CORPUSCULAR VOLUME 88.8 fL (80-100); MEAN PLATELET VOLUME 8.7 fL (7.4-10.4); PLATELET COUNT 59 x10^3/uL (130-400); RED BLOOD COUNT 2.99 x10^6/uL (3.82-5.3); RED CELL DISTRIBUTION WIDTH 14.1 % (9.6-15.2)
[2018-09-10 04:20] LABS: ANION GAP 8 mmol/L (5-15); CALCIUM 7.9 mg/dL (8.5-10.1); CHLORIDE 113 mmol/L (98-107)
[2018-09-10 04:21] LABS: TRIGLYCERIDES 204 mg/dL (50-200)
[2018-09-10 05:09] LABS: BASOPHILS # (AUTO) 0.01 x10^3/uL (0-0.1); BASOPHILS % (AUTO) 0 % (0-1); EOSINOPHILS # (AUTO) 0.05 x10^3/uL (0-0.4); EOSINOPHILS % (AUTO) 1 % (1-7); LYMPHOCYTES # (AUTO) 1.97 x10^3/uL (1-3.4); LYMPHOCYTES % (AUTO) 32 % (22-44); MD SCAN; MONOCYTES # (AUTO) 0.41 x10^3/uL (0.2-0.8); MONOCYTES % (AUTO) 7 % (2-9); NEUTROPHILS # (AUTO) 3.65 x10^3/uL (1.8-6.8); NEUTROPHILS % (AUTO) 60 % (42-75)
[2018-09-10] MEDS: SODIUM CHLORIDE 0.45% 1,000 ML IV SCH (05:53)
[2018-09-10] MEDS: MIDAZOLAM HCL 25 MG in SODIUM CHLORIDE 0.9% 245 ML IV PRN ×2 (05:53→17:04)
[2018-09-10] MEDS: FENTANYL PF 2,500 MCG in SODIUM CHLORIDE 0.9% 200 ML IV PRN (06:05)
[2018-09-10] MEDS ORDERED: MAGNESIUM SULFATE PMX 4GM/100M 100 ML IVPB ONE (07:30)
[2018-09-10] MEDS: RANITIDINE 15 MG/ML ORAL SOL NG SCH ×2 (08:16→21:07)
[2018-09-10] MEDS: SODIUM CHLORIDE FLUSH 10ML SYR IVF SCH ×2 (08:18→21:08)
[2018-09-10 10:23] VITALS: BP 114/66
[2018-09-10 10:39] VITALS: BP 109/67
[2018-09-10 12:14] VITALS: BP 117/61
[2018-09-10] MEDS ORDERED: MIDAZOLAM 1 MG/ML, 5ML ONE (14:56)
[2018-09-10] MEDS ORDERED: FENTANYL PF 100 MCG/2ML ONE (14:56)
[2018-09-10] MEDS ORDERED: VECURONIUM 10 MG ONE (14:56)
[2018-09-10] MEDS ORDERED: FENTANYL PF 100 MCG/2ML IVPush PRN (15:30)
[2018-09-10] MEDS ORDERED: MIDAZOLAM 1 MG/ML, 5ML IVPush ONE (15:30)
[2018-09-10] MEDS ORDERED: VECURONIUM 10 MG IVPush ONE (15:30)
[2018-09-10] MEDS: ERGOCALCIFEROL 8,000UNIT/ML NG SCH (16:58)
[2018-09-11] MEDS: MIDAZOLAM HCL 25 MG in SODIUM CHLORIDE 0.9% 245 ML IV PRN ×2 (00:10→07:01)
[2018-09-11] MEDS: ALBUTEROL/IPRATROPIUM 2.5MG/0.5MG, 3 ML INLINE SCH ×6 (02:13→22:55)
[2018-09-11 04:38] LABS: MEAN CORPUSCULAR HEMOGLOBIN 31.2 pg (27.0-34.8); MEAN CORPUSCULAR HGB CONC 34.9 g/dL (32.4-35.8); MEAN CORPUSCULAR VOLUME 89.4 fL (80-100); MEAN PLATELET VOLUME 8.9 fL (7.4-10.4); PLATELET COUNT 107 x10^3/uL (130-400); RED BLOOD COUNT 2.48 x10^6/uL (3.82-5.3); RED CELL DISTRIBUTION WIDTH 14.3 % (9.6-15.2)
[2018-09-11 04:41] LABS: ANION GAP 7 mmol/L (5-15); CALCIUM 8.2 mg/dL (8.5-10.1); CHLORIDE 112 mmol/L (98-107); CREATININE 0.18 mg/dL (0.55-1.02)
[2018-09-11] MEDS: SODIUM CHLORIDE 0.45% 1,000 ML IV SCH (05:02)
[2018-09-11 05:39] LABS: BASOPHILS # (AUTO) 0.01 x10^3/uL (0-0.1); BASOPHILS % (AUTO) 0 % (0-1); EOSINOPHILS # (AUTO) 0.08 x10^3/uL (0-0.4); EOSINOPHILS % (AUTO) 2 % (1-7); LYMPHOCYTES # (AUTO) 1.09 x10^3/uL (1-3.4); LYMPHOCYTES % (AUTO) 28 % (22-44); MD SCAN; MONOCYTES # (AUTO) 0.27 x10^3/uL (0.2-0.8); MONOCYTES % (AUTO) 7 % (2-9); NEUTROPHILS # (AUTO) 2.47 x10^3/uL (1.8-6.8); NEUTROPHILS % (AUTO) 63 % (42-75)
[2018-09-11] MEDS ORDERED: MAGNESIUM SULFATE PMX 4GM/100M 100 ML IV ONE (07:30)
[2018-09-11] MEDS: RANITIDINE 15 MG/ML ORAL SOL NG SCH ×2 (08:41→20:51)
[2018-09-11] MEDS: SODIUM CHLORIDE FLUSH 10ML SYR IVF SCH ×2 (08:41→20:51)
[2018-09-11] MEDS: METOCLOPRAMIDE 5 MG/ML, 2ML IVPush SCH ×3 (09:54→20:51)
[2018-09-11] MEDS: FONDAPARINUX 7.5 MG/0.6 ML SQ SCH (12:01)
[2018-09-11] MEDS: LORazepam 2 MG/ML, 1ML IVPush PRN (14:44)
[2018-09-11] MEDS: ERGOCALCIFEROL 8,000UNIT/ML NG SCH (15:49)
[2018-09-11] MEDS: FENTANYL PF 2,500 MCG in SODIUM CHLORIDE 0.9% 200 ML IV PRN (21:35)
[2018-09-12] MEDS: LORazepam 2 MG/ML, 1ML IVPush PRN ×3 (00:54→23:33)
[2018-09-12] MEDS: ALBUTEROL/IPRATROPIUM 2.5MG/0.5MG, 3 ML INLINE SCH ×6 (02:13→22:56)
[2018-09-12] MEDS: SODIUM CHLORIDE 0.45% 1,000 ML IV SCH (03:26)
[2018-09-12] MEDS: METOCLOPRAMIDE 5 MG/ML, 2ML IVPush SCH ×4 (03:26→21:33)
[2018-09-12 04:30] LABS: BASOPHILS # (AUTO) 0.02 x10^3/uL (0-0.1); BASOPHILS % (AUTO) 0 % (0-1); EOSINOPHILS # (AUTO) 0.08 x10^3/uL (0-0.4); EOSINOPHILS % (AUTO) 2 % (1-7); LYMPHOCYTES # (AUTO) 1.01 x10^3/uL (1-3.4); LYMPHOCYTES % (AUTO) 19 % (22-44); MD NO; MEAN CORPUSCULAR HEMOGLOBIN 31.2 pg (27.0-34.8); MEAN CORPUSCULAR HGB CONC 34.9 g/dL (32.4-35.8); MEAN CORPUSCULAR VOLUME 89.4 fL (80-100); MEAN PLATELET VOLUME 7.8 fL (7.4-10.4); MONOCYTES % (AUTO) 9 % (2-9); NEUTROPHILS # (AUTO) 3.71 x10^3/uL (1.8-6.8); NEUTROPHILS % (AUTO) 70 % (42-75); PLATELET COUNT 242 x10^3/uL (130-400); RED BLOOD COUNT 2.58 x10^6/uL (3.82-5.3)
[2018-09-12 04:38] LABS: ANION GAP 9 mmol/L (5-15); CALCIUM 7.8 mg/dL (8.5-10.1); CHLORIDE 108 mmol/L (98-107); CREATININE 0.27 mg/dL (0.55-1.02)
[2018-09-12] MEDS: RANITIDINE 15 MG/ML ORAL SOL NG SCH ×2 (08:56→21:32)
[2018-09-12] MEDS: SODIUM CHLORIDE FLUSH 10ML SYR IVF SCH ×2 (08:57→21:33)
[2018-09-12] MEDS ORDERED: MIDAZOLAM 1 MG/ML, 5ML ONE (09:39)
[2018-09-12] MEDS ORDERED: MIDAZOLAM 1 MG/ML, 5ML IVPush ONE (10:00)
[2018-09-12] MEDS ORDERED: POTASSIUM CHLORIDE 10% 40 MEQ/30 ML UDC PO ONE (10:30)
[2018-09-12] MEDS ORDERED: MAGNESIUM SULFATE PMX 2GM/50ML 50 ML IV ONE (10:30)
[2018-09-12] MEDS ORDERED: SODIUM CHLORIDE 0.9%, 500ML IVBOLUS ONE (10:30)
[2018-09-12] MEDS: MIDAZOLAM HCL 25 MG in SODIUM CHLORIDE 0.9% 245 ML IV PRN (11:12)
[2018-09-12] MEDS ORDERED: PVN PER PHARMACY MC PRN (11:30)
[2018-09-12] MEDS: FONDAPARINUX 7.5 MG/0.6 ML SQ SCH (11:45)
[2018-09-12] MEDS ORDERED: SODIUM CHLORIDE 0.45% 1,000 ML IV SCH (11:56)
[2018-09-12] MEDS: THIAMINE 200 MG in SODIUM CHLORIDE 0.9% 50 ML IV SCH (12:57)
[2018-09-12] MEDS ORDERED: SODIUM CHLORIDE 0.9% 1,000ML IVBOLUS ONE (15:30)
[2018-09-12] MEDS: ERGOCALCIFEROL 8,000UNIT/ML NG SCH ×2 (16:00→16:09)
[2018-09-12] MEDS: FILTER, DISP 1.2 MICRON FOR TPN/PVN IV PRN (16:10)
[2018-09-12 16:35] LABS: OSMOLALITY,URINE 160 mOsm/kg (500-850)
[2018-09-12 16:46] LABS: ANION GAP 9 mmol/L (5-15); CALCIUM 7.6 mg/dL (8.5-10.1); CHLORIDE 110 mmol/L (98-107); CREATININE 0.24 mg/dL (0.55-1.02)
[2018-09-12] MEDS ORDERED: SMOF TPN IV SCH (17:00)
[2018-09-12] MEDS ORDERED: FAT EMUL IV SCH (17:00)
[2018-09-12] MEDS ORDERED: PVN PER PHARMACY MC SCH (17:00)
[2018-09-12] MEDS ORDERED: [UNRECOGNIZED DRUG - OTHER] IV SCH (17:00)
[2018-09-12] MEDS ORDERED: DEXTROSE 50%, 50ML SYRINGE IVPush PRN (17:00)
[2018-09-12] MEDS ORDERED: AMINO ACID 10% IV SCH (17:00)
[2018-09-12] MEDS ORDERED: DEXTROSE 70% IV SCH (17:00)
[2018-09-12] MEDS ORDERED: DEXTROSE 10% 500 ML IV PRN (17:00)
[2018-09-12] MEDS ORDERED: FENTANYL PF 250 MCG/5ML ONE ×2 (18:01→19:26)
[2018-09-12] MEDS: DESMOPRESSIN 4 MCG/ML INJ IVPush SCH (18:04)
[2018-09-12] MEDS ORDERED: BUPIVACAINE/PF-EPI 0.5% 1:200K ONE (18:51)
[2018-09-12] MEDS ORDERED: ROCURONIUM 10MG/ML,5ML ONE (19:09)
[2018-09-12] MEDS ORDERED: BUPIVACAINE/PF-EPI 0.5% 1:200K INFIL ONE (19:48)
[2018-09-12] MEDS: INSULIN REGULAR LOW DOSE Q6H X 48HRS SQ-INSULIN SCH (22:58)
[2018-09-13] MEDS: FENTANYL PF 2,500 MCG in SODIUM CHLORIDE 0.9% 200 ML IV PRN (02:03)
[2018-09-13] MEDS: ALBUTEROL/IPRATROPIUM 2.5MG/0.5MG, 3 ML INLINE SCH ×6 (03:40→22:26)
[2018-09-13] MEDS: METOCLOPRAMIDE 5 MG/ML, 2ML IVPush SCH ×4 (03:51→21:08)
[2018-09-13 04:35] LABS: ALANINE AMINOTRANSFERASE 22 U/L (12-78); ALBUMIN 2.2 g/dL (3.4-5.0); ANION GAP 8 mmol/L (5-15); CALCIUM 8.1 mg/dL (8.5-10.1); CHLORIDE 110 mmol/L (98-107); CREATININE 0.36 mg/dL (0.55-1.02); TRIGLYCERIDES 133 mg/dL (50-200)
[2018-09-13 04:36] LABS: OSMOLALITY,URINE 291 mOsm/kg (500-850)
[2018-09-13 04:38] LABS: MEAN CORPUSCULAR HEMOGLOBIN 30.4 pg (27.0-34.8); MEAN CORPUSCULAR HGB CONC 33.8 g/dL (32.4-35.8); MEAN CORPUSCULAR VOLUME 90.1 fL (80-100); MEAN PLATELET VOLUME 7.1 fL (7.4-10.4); PLATELET COUNT 393 x10^3/uL (130-400); RED BLOOD COUNT 2.49 x10^6/uL (3.82-5.3); RED CELL DISTRIBUTION WIDTH 14.6 % (9.6-15.2)
[2018-09-13 04:40] LABS: ALKALINE PHOSPHATASE 142 U/L (45-117); BILIRUBIN,TOTAL 0.4 mg/dL (0.2-1.0); PREALBUMIN 9.9 mg/dL (20.0-40.0); TOTAL PROTEIN 4.9 g/dL (6.4-8.2)
[2018-09-13 04:43] LABS: HEMOGRAM NOTE RECHECKED
[2018-09-13] MEDS: INSULIN REGULAR LOW DOSE Q6H X 48HRS SQ-INSULIN SCH ×4 (05:00→23:02)
[2018-09-13 05:43] LABS: BASOPHILS # (AUTO) 0.01 x10^3/uL (0-0.1); BASOPHILS % (AUTO) 0 % (0-1); EOSINOPHILS # (AUTO) 0.06 x10^3/uL (0-0.4); EOSINOPHILS % (AUTO) 1 % (1-7); LYMPHOCYTES # (AUTO) 0.99 x10^3/uL (1-3.4); LYMPHOCYTES % (AUTO) 12 % (22-44); MD SCAN; MONOCYTES # (AUTO) 0.82 x10^3/uL (0.2-0.8); MONOCYTES % (AUTO) 10 % (2-9); NEUTROPHILS # (AUTO) 6.33 x10^3/uL (1.8-6.8); NEUTROPHILS % (AUTO) 77 % (42-75)
[2018-09-13] MEDS: DESMOPRESSIN 4 MCG/ML INJ IVPush SCH ×2 (06:16→17:41)
[2018-09-13 09:46] LABS: CHOLESTEROL, TOTAL 132 mg/dL (140-239)
[2018-09-13 09:47] LABS: CHOL/HDL RATIO 2.9; HDL CHOL % 34 % (28-40); HDL CHOLESTEROL (DIRECT) 45 mg/dL (40-60)
[2018-09-13 09:48] LABS: LDL CHOLESTEROL,CALCULATED 60 mg/dL (54-169); LDL/HDL RATIO 1.3 (0.5-3.0)
[2018-09-13] MEDS: SODIUM CHLORIDE FLUSH 10ML SYR IVF SCH ×2 (09:49→21:07)
[2018-09-13] MEDS: RANITIDINE 15 MG/ML ORAL SOL NG SCH ×2 (09:49→21:08)
--- NOTE | 2018-09-13 10:45 | NUR ---
09/13-TF GOAL when ordered: PROMOTE @ 70ML/HR (if propofol resumed: promote @ 60ml/hr)
[2018-09-13 10:56] LABS: VLDL CHOLESTEROL 27 mg/dL (0-25)
[2018-09-13] MEDS: FONDAPARINUX 7.5 MG/0.6 ML SQ SCH (11:41)
[2018-09-13] MEDS: THIAMINE 200 MG in SODIUM CHLORIDE 0.9% 50 ML IV SCH (14:50)
[2018-09-13] MEDS: ERGOCALCIFEROL 8,000UNIT/ML NG SCH (16:19)
[2018-09-13] MEDS ORDERED: DEXTROSE 70% IV SCH (17:00)
[2018-09-13] MEDS ORDERED: SMOF TPN IV SCH (17:00)
[2018-09-13] MEDS ORDERED: [UNRECOGNIZED DRUG - OTHER] IV SCH (17:00)
[2018-09-13] MEDS ORDERED: FAT EMUL IV SCH (17:00)
[2018-09-13] MEDS ORDERED: AMINO ACID 10% IV SCH (17:00)
[2018-09-13] MEDS: FILTER, DISP 1.2 MICRON FOR TPN/PVN IV PRN (17:42)
[2018-09-13] MEDS ORDERED: METOPROLOL TARTRATE 25 MG TABLET JT SCH (19:00)
[2018-09-14] MEDS: FENTANYL PF 2,500 MCG in SODIUM CHLORIDE 0.9% 200 ML IV PRN (01:49)
[2018-09-14] MEDS: METOCLOPRAMIDE 5 MG/ML, 2ML IVPush SCH ×4 (03:03→20:51)
[2018-09-14] MEDS: ALBUTEROL/IPRATROPIUM 2.5MG/0.5MG, 3 ML INLINE SCH ×4 (03:10→15:00)
[2018-09-14 04:19] LABS: BASOPHILS # (AUTO) 0.06 x10^3/uL (0-0.1); BASOPHILS % (AUTO) 1 % (0-1); EOSINOPHILS # (AUTO) 0.19 x10^3/uL (0-0.4); EOSINOPHILS % (AUTO) 3 % (1-7); LYMPHOCYTES % (AUTO) 19 % (22-44); MD NO; MEAN CORPUSCULAR HEMOGLOBIN 30.8 pg (27.0-34.8); MEAN CORPUSCULAR HGB CONC 34.2 g/dL (32.4-35.8); MEAN CORPUSCULAR VOLUME 90.1 fL (80-100); MONOCYTES # (AUTO) 0.95 x10^3/uL (0.2-0.8); MONOCYTES % (AUTO) 15 % (2-9); NEUTROPHILS # (AUTO) 3.88 x10^3/uL (1.8-6.8); NEUTROPHILS % (AUTO) 62 % (42-75); PLATELET COUNT 440 x10^3/uL (130-400); RED BLOOD COUNT 2.53 x10^6/uL (3.82-5.3); RED CELL DISTRIBUTION WIDTH 14.3 % (9.6-15.2)
[2018-09-14 04:26] LABS: ANION GAP 10 mmol/L (5-15); CALCIUM 8.5 mg/dL (8.5-10.1); CHLORIDE 101 mmol/L (98-107)
[2018-09-14 04:58] LABS: OSMOLALITY,URINE 317 mOsm/kg (500-850)
[2018-09-14] MEDS: INSULIN REGULAR LOW DOSE Q6H X 48HRS SQ-INSULIN SCH ×2 (05:19→11:00)
[2018-09-14] MEDS: DESMOPRESSIN 4 MCG/ML INJ IVPush SCH ×2 (05:22→17:20)
[2018-09-14] MEDS ORDERED: MAGNESIUM SULFATE PMX 2GM/50ML 50 ML IV ONE (07:00)
[2018-09-14] MEDS: SODIUM CHLORIDE FLUSH 10ML SYR IVF SCH ×2 (08:05→20:50)
[2018-09-14] MEDS ORDERED: METOPROLOL TARTRATE 25 MG TABLET ONE (08:37)
[2018-09-14] MEDS: RANITIDINE 15 MG/ML ORAL SOL NG SCH ×2 (08:39→20:50)
[2018-09-14] MEDS: METOPROLOL TARTRATE 25 MG TABLET JT SCH ×2 (08:42→20:50)
[2018-09-14] MEDS: THIAMINE 200 MG in SODIUM CHLORIDE 0.9% 50 ML IV SCH (12:36)
[2018-09-14] MEDS: FONDAPARINUX 7.5 MG/0.6 ML SQ SCH (12:36)
[2018-09-14] MEDS ORDERED: ALBUTEROL/IPRATROPIUM 2.5MG/0.5MG, 3 ML INLINE PRN (15:30)
[2018-09-14] MEDS: FILTER, DISP 1.2 MICRON FOR TPN/PVN IV PRN (16:51)
[2018-09-14] MEDS: ERGOCALCIFEROL 8,000UNIT/ML NG SCH (16:51)
[2018-09-14] MEDS ORDERED: DEXTROSE 70% IV SCH (17:00)
[2018-09-14] MEDS ORDERED: [UNRECOGNIZED DRUG - OTHER] IV SCH (17:00)
[2018-09-14] MEDS ORDERED: AMINO ACID 10% IV SCH (17:00)
[2018-09-14] MEDS ORDERED: SMOF TPN IV SCH (17:00)
[2018-09-14] MEDS ORDERED: FAT EMUL IV SCH (17:00)
[2018-09-14] MEDS ORDERED: METOPROLOL TARTRATE 25 MG TABLET JT SCH (19:00)
[2018-09-15] MEDS: FENTANYL PF 2,500 MCG in SODIUM CHLORIDE 0.9% 200 ML IV PRN (02:22)
[2018-09-15] MEDS: METOCLOPRAMIDE 5 MG/ML, 2ML IVPush SCH ×4 (03:42→21:18)
[2018-09-15 03:47] LABS: OSMOLALITY,URINE 437 mOsm/kg (500-850)
[2018-09-15 04:34] LABS: BASOPHILS % (AUTO) 0 % (0-1); EOSINOPHILS # (AUTO) 0.14 x10^3/uL (0-0.4); EOSINOPHILS % (AUTO) 2 % (1-7); LYMPHOCYTES # (AUTO) 1.13 x10^3/uL (1-3.4); LYMPHOCYTES % (AUTO) 14 % (22-44); MD NO; MEAN CORPUSCULAR HEMOGLOBIN 29.7 pg (27.0-34.8); MEAN CORPUSCULAR HGB CONC 33.5 g/dL (32.4-35.8); MEAN CORPUSCULAR VOLUME 88.9 fL (80-100); MEAN PLATELET VOLUME 6.9 fL (7.4-10.4); MONOCYTES # (AUTO) 1.38 x10^3/uL (0.2-0.8); MONOCYTES % (AUTO) 17 % (2-9); NEUTROPHILS # (AUTO) 5.34 x10^3/uL (1.8-6.8); NEUTROPHILS % (AUTO) 67 % (42-75); PLATELET COUNT 595 x10^3/uL (130-400); RED BLOOD COUNT 2.63 x10^6/uL (3.82-5.3); RED CELL DISTRIBUTION WIDTH 14.2 % (9.6-15.2)
[2018-09-15 04:40] LABS: ANION GAP 8 mmol/L (5-15); CALCIUM 8.2 mg/dL (8.5-10.1); CHLORIDE 96 mmol/L (98-107)
[2018-09-15] MEDS ORDERED: INSULIN REGULAR LOW DOSE QDAY SQ-INSULIN SCH (05:00)
[2018-09-15] MEDS: DESMOPRESSIN 4 MCG/ML INJ IVPush SCH (05:22)
[2018-09-15] MEDS: SODIUM CHLORIDE FLUSH 10ML SYR IVF SCH ×2 (08:36→20:08)
[2018-09-15] MEDS: RANITIDINE 15 MG/ML ORAL SOL NG SCH ×2 (08:36→20:09)
[2018-09-15] MEDS ORDERED: METOPROLOL 1 MG/ML, 5ML ONE (09:27)
[2018-09-15] MEDS ORDERED: METOPROLOL 1 MG/ML, 5ML IVPush ONE (09:30)
[2018-09-15] MEDS: FONDAPARINUX 7.5 MG/0.6 ML SQ SCH (11:59)
[2018-09-15] MEDS: METOPROLOL TARTRATE 25 MG TABLET JT SCH ×2 (11:59→20:07)
[2018-09-15] MEDS ORDERED: SODIUM CHLORIDE 0.9%, 500ML IVBOLUS ONE ×2 (12:30→14:00)
[2018-09-15] MEDS: LORazepam 2 MG/ML, 1ML IVPush PRN ×2 (15:29→18:50)
[2018-09-15] MEDS: ERGOCALCIFEROL 8,000UNIT/ML NG SCH (15:29)
[2018-09-15] MEDS: SENNOSIDES 8.8 MG/5 ML ORAL SOL NG PRN (16:01)
[2018-09-15] MEDS ORDERED: SMOF TPN IV SCH ×3 (17:00)
[2018-09-15] MEDS ORDERED: [UNRECOGNIZED DRUG - OTHER] IV SCH (17:00)
[2018-09-15] MEDS ORDERED: AMINO ACID 10% IV SCH ×3 (17:00)
[2018-09-15] MEDS ORDERED: FAT EMUL IV SCH ×3 (17:00)
[2018-09-15] MEDS ORDERED: DEXTROSE 70% IV SCH ×3 (17:00)
[2018-09-15] MEDS ORDERED: [UNRECOGNIZED DRUG - OTHER] IV SCH (17:00)
[2018-09-15] MEDS ORDERED: FILTER, DISP 1.2 MICRON FOR TPN/PVN IV PRN (17:00)
[2018-09-15] MEDS ORDERED: [UNRECOGNIZED DRUG - OTHER] IV SCH (17:00)
[2018-09-15 17:29] LABS: ALBUMIN 2.8 g/dL (3.4-5.0); ANION GAP 7 mmol/L (5-15); CALCIUM 8.8 mg/dL (8.5-10.1); CHLORIDE 99 mmol/L (98-107)
[2018-09-15 17:34] LABS: ALANINE AMINOTRANSFERASE 24 U/L (12-78); ALKALINE PHOSPHATASE 178 U/L (45-117); BILIRUBIN,TOTAL 0.7 mg/dL (0.2-1.0); CREATININE 0.25 mg/dL (0.55-1.02); TOTAL PROTEIN 6.7 g/dL (6.4-8.2)
[2018-09-15] MEDS: ACETAMINOPHEN 325 MG TABLET PO PRN (20:00)
[2018-09-15] MEDS: CEFTRIAXONE PMX 1GM/50ML 50 ML IV SCH (21:18)
[2018-09-16] MEDS: METOCLOPRAMIDE 5 MG/ML, 2ML IVPush SCH ×4 (04:07→21:40)
[2018-09-16 04:32] LABS: MEAN CORPUSCULAR HEMOGLOBIN 30.9 pg (27.0-34.8); MEAN CORPUSCULAR HGB CONC 34.4 g/dL (32.4-35.8); MEAN PLATELET VOLUME 6.8 fL (7.4-10.4); PLATELET COUNT 749 x10^3/uL (130-400); RED BLOOD COUNT 3.23 x10^6/uL (3.82-5.3); RED CELL DISTRIBUTION WIDTH 14.1 % (9.6-15.2)
[2018-09-16 05:07] LABS: BASOPHILS # (AUTO) 0.04 x10^3/uL (0-0.1); BASOPHILS % (AUTO) 1 % (0-1); EOSINOPHILS # (AUTO) 0.24 x10^3/uL (0-0.4); EOSINOPHILS % (AUTO) 3 % (1-7); LYMPHOCYTES # (AUTO) 1.36 x10^3/uL (1-3.4); LYMPHOCYTES % (AUTO) 15 % (22-44); MD SCAN; MONOCYTES # (AUTO) 1.53 x10^3/uL (0.2-0.8); MONOCYTES % (AUTO) 17 % (2-9); NEUTROPHILS # (AUTO) 5.68 x10^3/uL (1.8-6.8); NEUTROPHILS % (AUTO) 64 % (42-75)
[2018-09-16] MEDS: ACETAMINOPHEN 325 MG TABLET PO PRN (05:10)
[2018-09-16] MEDS: LORazepam 2 MG/ML, 1ML IVPush PRN ×3 (05:10→17:45)
[2018-09-16 06:06] LABS: ANION GAP 10 mmol/L (5-15); CALCIUM 9.3 mg/dL (8.5-10.1); CHLORIDE 105 mmol/L (98-107)
[2018-09-16 06:16] LABS: OSMOLALITY,URINE 522 mOsm/kg (500-850)
[2018-09-16] MEDS: METOPROLOL TARTRATE 25 MG TABLET JT SCH (08:27)
[2018-09-16] MEDS: RANITIDINE 15 MG/ML ORAL SOL NG SCH ×2 (08:27→21:39)
[2018-09-16] MEDS: SODIUM CHLORIDE FLUSH 10ML SYR IVF SCH ×2 (08:27→21:40)
[2018-09-16] MEDS: FENTANYL PF 2,500 MCG in SODIUM CHLORIDE 0.9% 200 ML IV PRN ×2 (08:32→13:00)
[2018-09-16] MEDS: FONDAPARINUX 7.5 MG/0.6 ML SQ SCH (13:21)
[2018-09-16] MEDS: ERGOCALCIFEROL 8,000UNIT/ML NG SCH (16:52)
[2018-09-16] MEDS: CEFTRIAXONE PMX 1GM/50ML 50 ML IV SCH (19:53)
[2018-09-17] MEDS: METOCLOPRAMIDE 5 MG/ML, 2ML IVPush SCH ×4 (02:22→20:18)
[2018-09-17] MEDS: LORazepam 2 MG/ML, 1ML IVPush PRN (02:22)
[2018-09-17] MEDS ORDERED: METOPROLOL 1 MG/ML, 5ML IVPush ONE (03:00)
[2018-09-17 06:33] LABS: OSMOLALITY,URINE 715 mOsm/kg (500-850)
[2018-09-17 06:43] LABS: BASOPHILS # (AUTO) 0.14 x10^3/uL (0-0.1); BASOPHILS % (AUTO) 2 % (0-1); EOSINOPHILS # (AUTO) 0.13 x10^3/uL (0-0.4); EOSINOPHILS % (AUTO) 2 % (1-7); LYMPHOCYTES # (AUTO) 1.78 x10^3/uL (1-3.4); LYMPHOCYTES % (AUTO) 21 % (22-44); MD NO; MEAN CORPUSCULAR HGB CONC 34.3 g/dL (32.4-35.8); MEAN CORPUSCULAR VOLUME 90.3 fL (80-100); MEAN PLATELET VOLUME 7.1 fL (7.4-10.4); MONOCYTES # (AUTO) 1.35 x10^3/uL (0.2-0.8); MONOCYTES % (AUTO) 16 % (2-9); NEUTROPHILS # (AUTO) 5.11 x10^3/uL (1.8-6.8); NEUTROPHILS % (AUTO) 60 % (42-75); PLATELET COUNT 800 x10^3/uL (130-400); RED BLOOD COUNT 3.07 x10^6/uL (3.82-5.3); RED CELL DISTRIBUTION WIDTH 14.3 % (9.6-15.2)
[2018-09-17 06:54] LABS: ANION GAP 5 mmol/L (5-15); CALCIUM 9.6 mg/dL (8.5-10.1); CHLORIDE 107 mmol/L (98-107)
[2018-09-17 06:55] LABS: CREATININE 0.44 mg/dL (0.55-1.02)
[2018-09-17] MEDS ORDERED: FILTER 0.22 MICRON IV ONE (08:30)
[2018-09-17] MEDS ORDERED: PHENYTOIN SODIUM 1,000 MG in SODIUM CHLORIDE 0.9% 100 ML IV ONE (08:30)
[2018-09-17] MEDS ORDERED: METHYLNALTREXONE 12 MG/0.6 ML SYR SQ SCH (09:00)
[2018-09-17] MEDS: METHYLNALTREXONE 12 MG/0.6 ML SYR SQ SCH (09:04)
[2018-09-17] MEDS: SODIUM CHLORIDE FLUSH 10ML SYR IVF SCH ×2 (09:04→20:16)
[2018-09-17] MEDS: FONDAPARINUX 7.5 MG/0.6 ML SQ SCH (09:05)
[2018-09-17] MEDS: RANITIDINE 15 MG/ML ORAL SOL NG SCH ×2 (09:05→20:18)
[2018-09-17] MEDS: ERGOCALCIFEROL 8,000UNIT/ML NG SCH (09:06)
[2018-09-17] MEDS ORDERED: VECURONIUM 10 MG ONE (14:43)
[2018-09-17] MEDS ORDERED: VECURONIUM 10 MG IVPush ONE (15:00)
[2018-09-17] MEDS ORDERED: OMNIPAQUE 350 MG/ML, 100ML BOTTLE ONE (15:08)
[2018-09-17] MEDS: FENTANYL PF 2,500 MCG in SODIUM CHLORIDE 0.9% 200 ML IV PRN (20:16)
[2018-09-17] MEDS: CEFTRIAXONE PMX 1GM/50ML 50 ML IV SCH (20:18)
[2018-09-18] MEDS: METOCLOPRAMIDE 5 MG/ML, 2ML IVPush SCH ×4 (04:14→20:47)
[2018-09-18 04:38] LABS: BASOPHILS % (AUTO) 1 % (0-1); EOSINOPHILS # (AUTO) 0.19 x10^3/uL (0-0.4); EOSINOPHILS % (AUTO) 2 % (1-7); LYMPHOCYTES # (AUTO) 1.86 x10^3/uL (1-3.4); LYMPHOCYTES % (AUTO) 22 % (22-44); MD NO; MEAN CORPUSCULAR HEMOGLOBIN 30.1 pg (27.0-34.8); MEAN CORPUSCULAR HGB CONC 33.1 g/dL (32.4-35.8); MEAN CORPUSCULAR VOLUME 90.8 fL (80-100); MEAN PLATELET VOLUME 7.1 fL (7.4-10.4); MONOCYTES # (AUTO) 1.18 x10^3/uL (0.2-0.8); MONOCYTES % (AUTO) 14 % (2-9); NEUTROPHILS # (AUTO) 4.98 x10^3/uL (1.8-6.8); NEUTROPHILS % (AUTO) 60 % (42-75); PLATELET COUNT 718 x10^3/uL (130-400); RED BLOOD COUNT 2.85 x10^6/uL (3.82-5.3); RED CELL DISTRIBUTION WIDTH 14.7 % (9.6-15.2)
[2018-09-18 04:44] LABS: ANION GAP 8 mmol/L (5-15); CALCIUM 9.4 mg/dL (8.5-10.1); CHLORIDE 106 mmol/L (98-107)
[2018-09-18] MEDS ORDERED: MAGNESIUM SULFATE PMX 4GM/100M 100 ML IV ONE (07:30)
[2018-09-18] MEDS: RANITIDINE 15 MG/ML ORAL SOL NG SCH ×2 (09:16→20:47)
[2018-09-18] MEDS: PHENYTOIN SODIUM 50 MG/ML, 2ML IVPush SCH ×3 (09:16→20:47)
[2018-09-18] MEDS: SODIUM CHLORIDE FLUSH 10ML SYR IVF SCH ×2 (09:17→20:46)
[2018-09-18] MEDS: FONDAPARINUX 7.5 MG/0.6 ML SQ SCH (09:17)
[2018-09-18] MEDS: ERGOCALCIFEROL 8,000UNIT/ML NG SCH (09:17)
[2018-09-18] MEDS: CEFTRIAXONE PMX 1GM/50ML 50 ML IV SCH (20:05)
[2018-09-19] MEDS: FENTANYL PF 2,500 MCG in SODIUM CHLORIDE 0.9% 200 ML IV PRN (00:06)
[2018-09-19] MEDS: METOCLOPRAMIDE 5 MG/ML, 2ML IVPush SCH ×4 (03:37→22:18)
[2018-09-19 04:30] LABS: BASOPHILS # (AUTO) 0.07 x10^3/uL (0-0.1); BASOPHILS % (AUTO) 1 % (0-1); EOSINOPHILS # (AUTO) 0.31 x10^3/uL (0-0.4); EOSINOPHILS % (AUTO) 4 % (1-7); LYMPHOCYTES # (AUTO) 1.63 x10^3/uL (1-3.4); LYMPHOCYTES % (AUTO) 23 % (22-44); MD NO; MEAN CORPUSCULAR HEMOGLOBIN 30.8 pg (27.0-34.8); MEAN CORPUSCULAR HGB CONC 33.9 g/dL (32.4-35.8); MEAN CORPUSCULAR VOLUME 90.7 fL (80-100); MEAN PLATELET VOLUME 6.9 fL (7.4-10.4); MONOCYTES % (AUTO) 14 % (2-9); NEUTROPHILS # (AUTO) 4.15 x10^3/uL (1.8-6.8); NEUTROPHILS % (AUTO) 58 % (42-75); PLATELET COUNT 610 x10^3/uL (130-400); RED BLOOD COUNT 2.72 x10^6/uL (3.82-5.3); RED CELL DISTRIBUTION WIDTH 14.8 % (9.6-15.2)
[2018-09-19 04:43] LABS: ANION GAP 8 mmol/L (5-15); CALCIUM 8.9 mg/dL (8.5-10.1); CHLORIDE 106 mmol/L (98-107)
[2018-09-19 04:45] LABS: CREATININE 0.41 mg/dL (0.55-1.02)
[2018-09-19] MEDS ORDERED: FENTANYL PF 2,500 MCG in SODIUM CHLORIDE 0.9% 200 ML IV PRN (08:30)
[2018-09-19] MEDS: SODIUM CHLORIDE FLUSH 10ML SYR IVF SCH ×2 (09:34→20:55)
[2018-09-19] MEDS: METHYLNALTREXONE 12 MG/0.6 ML SYR SQ SCH (09:34)
[2018-09-19] MEDS: RANITIDINE 15 MG/ML ORAL SOL NG SCH ×2 (09:35→20:55)
[2018-09-19] MEDS: PHENYTOIN SODIUM 50 MG/ML, 2ML IVPush SCH ×3 (09:35→20:57)
[2018-09-19] MEDS: ENOXAPARIN 60 MG/0.6 ML SQ SCH ×2 (09:37→20:55)
[2018-09-19] MEDS: ERGOCALCIFEROL 8,000UNIT/ML NG SCH (16:29)
[2018-09-19] MEDS: CEFTRIAXONE PMX 1GM/50ML 50 ML IV SCH (20:55)
[2018-09-20] MEDS: METOCLOPRAMIDE 5 MG/ML, 2ML IVPush SCH ×4 (03:19→22:24)
[2018-09-20 04:27] LABS: BASOPHILS # (AUTO) 0.08 x10^3/uL (0-0.1); BASOPHILS % (AUTO) 1 % (0-1); EOSINOPHILS # (AUTO) 0.24 x10^3/uL (0-0.4); EOSINOPHILS % (AUTO) 3 % (1-7); LYMPHOCYTES # (AUTO) 1.75 x10^3/uL (1-3.4); LYMPHOCYTES % (AUTO) 23 % (22-44); MD NO; MEAN CORPUSCULAR HGB CONC 33.7 g/dL (32.4-35.8); MEAN CORPUSCULAR VOLUME 91.8 fL (80-100); MEAN PLATELET VOLUME 6.9 fL (7.4-10.4); MONOCYTES % (AUTO) 12 % (2-9); NEUTROPHILS # (AUTO) 4.63 x10^3/uL (1.8-6.8); NEUTROPHILS % (AUTO) 61 % (42-75); PLATELET COUNT 424 x10^3/uL (130-400); RED BLOOD COUNT 2.78 x10^6/uL (3.82-5.3); RED CELL DISTRIBUTION WIDTH 15.4 % (9.6-15.2)
[2018-09-20 04:39] LABS: ANION GAP 8 mmol/L (5-15); CHLORIDE 106 mmol/L (98-107)
[2018-09-20 04:43] LABS: CREATININE 0.38 mg/dL (0.55-1.02)
[2018-09-20] MEDS ORDERED: MAGNESIUM SULFATE 4 GM in SODIUM CHLORIDE 0.9% 100 ML IV ONE (06:30)
[2018-09-20] MEDS: PHENYTOIN SODIUM 50 MG/ML, 2ML IVPush SCH ×3 (09:05→20:36)
[2018-09-20] MEDS: RANITIDINE 15 MG/ML ORAL SOL NG SCH ×2 (09:05→20:35)
[2018-09-20] MEDS: SODIUM CHLORIDE FLUSH 10ML SYR IVF SCH ×2 (09:06→20:36)
[2018-09-20] MEDS: ENOXAPARIN 60 MG/0.6 ML SQ SCH ×2 (09:06→20:35)
[2018-09-20] MEDS: FENTANYL 25 MCG PATCH TD SCH (12:06)
[2018-09-20] MEDS: ERGOCALCIFEROL 8,000UNIT/ML NG SCH (16:20)
[2018-09-20] MEDS: CEFTRIAXONE PMX 1GM/50ML 50 ML IV SCH (20:35)
[2018-09-21] MEDS: METOCLOPRAMIDE 5 MG/ML, 2ML IVPush SCH ×2 (04:11→09:09)
[2018-09-21 06:18] LABS: BASOPHILS # (AUTO) 0.08 x10^3/uL (0-0.1); BASOPHILS % (AUTO) 1 % (0-1); EOSINOPHILS # (AUTO) 0.16 x10^3/uL (0-0.4); EOSINOPHILS % (AUTO) 2 % (1-7); LYMPHOCYTES # (AUTO) 1.84 x10^3/uL (1-3.4); LYMPHOCYTES % (AUTO) 24 % (22-44); MD NO; MEAN CORPUSCULAR HEMOGLOBIN 30.7 pg (27.0-34.8); MEAN CORPUSCULAR HGB CONC 33.3 g/dL (32.4-35.8); MEAN CORPUSCULAR VOLUME 92.1 fL (80-100); MEAN PLATELET VOLUME 6.9 fL (7.4-10.4); MONOCYTES # (AUTO) 0.88 x10^3/uL (0.2-0.8); MONOCYTES % (AUTO) 11 % (2-9); NEUTROPHILS # (AUTO) 4.84 x10^3/uL (1.8-6.8); NEUTROPHILS % (AUTO) 62 % (42-75); PLATELET COUNT 534 x10^3/uL (130-400); RED BLOOD COUNT 2.85 x10^6/uL (3.82-5.3); RED CELL DISTRIBUTION WIDTH 15.5 % (9.6-15.2)
[2018-09-21 06:22] LABS: ANION GAP 4 mmol/L (5-15); CALCIUM 9.4 mg/dL (8.5-10.1); CHLORIDE 109 mmol/L (98-107); CREATININE 0.35 mg/dL (0.55-1.02)
[2018-09-21] MEDS: METHYLNALTREXONE 12 MG/0.6 ML SYR SQ SCH (08:30)
[2018-09-21] MEDS: ENOXAPARIN 60 MG/0.6 ML SQ SCH ×2 (09:09→21:41)
[2018-09-21] MEDS: RANITIDINE 15 MG/ML ORAL SOL NG SCH ×2 (09:09→21:40)
[2018-09-21] MEDS: PHENYTOIN SODIUM 50 MG/ML, 2ML IVPush SCH ×3 (09:09→21:40)
[2018-09-21] MEDS: SODIUM CHLORIDE FLUSH 10ML SYR IVF SCH ×2 (09:10→21:39)
[2018-09-21] MEDS: METOPROLOL TARTRATE 25 MG TABLET PO SCH ×2 (12:29→19:46)
[2018-09-21] MEDS: ERGOCALCIFEROL 8,000UNIT/ML NG SCH (17:18)
[2018-09-21] MEDS: CEFTRIAXONE PMX 1GM/50ML 50 ML IV SCH (19:47)
[2018-09-22] MEDS: METOPROLOL TARTRATE 25 MG TABLET PO SCH ×3 (03:31→19:39)
[2018-09-22 04:16] LABS: BASOPHILS # (AUTO) 0.12 x10^3/uL (0-0.1); BASOPHILS % (AUTO) 1 % (0-1); EOSINOPHILS # (AUTO) 0.24 x10^3/uL (0-0.4); EOSINOPHILS % (AUTO) 3 % (1-7); LYMPHOCYTES # (AUTO) 2.27 x10^3/uL (1-3.4); LYMPHOCYTES % (AUTO) 26 % (22-44); MD NO; MEAN CORPUSCULAR HEMOGLOBIN 30.7 pg (27.0-34.8); MEAN CORPUSCULAR HGB CONC 33.1 g/dL (32.4-35.8); MEAN CORPUSCULAR VOLUME 92.6 fL (80-100); MEAN PLATELET VOLUME 7.1 fL (7.4-10.4); MONOCYTES # (AUTO) 0.89 x10^3/uL (0.2-0.8); MONOCYTES % (AUTO) 10 % (2-9); NEUTROPHILS # (AUTO) 5.28 x10^3/uL (1.8-6.8); NEUTROPHILS % (AUTO) 60 % (42-75); PLATELET COUNT 488 x10^3/uL (130-400); RED CELL DISTRIBUTION WIDTH 15.9 % (9.6-15.2)
[2018-09-22 04:27] LABS: ANION GAP 8 mmol/L (5-15); CALCIUM 9.2 mg/dL (8.5-10.1); CHLORIDE 109 mmol/L (98-107); CREATININE 0.37 mg/dL (0.55-1.02)
[2018-09-22] MEDS ORDERED: MAGNESIUM SULFATE PMX 2GM/50ML 50 ML IV ONE (07:30)
[2018-09-22] MEDS: SODIUM CHLORIDE FLUSH 10ML SYR IVF SCH ×2 (07:44→21:53)
[2018-09-22] MEDS: ENOXAPARIN 60 MG/0.6 ML SQ SCH ×2 (07:45→21:52)
[2018-09-22] MEDS: PHENYTOIN SODIUM 50 MG/ML, 2ML IVPush SCH (07:45)
[2018-09-22] MEDS: RANITIDINE 15 MG/ML ORAL SOL NG SCH ×2 (12:14→21:53)
[2018-09-22] MEDS: ERGOCALCIFEROL 8,000UNIT/ML NG SCH (17:40)
[2018-09-23] MEDS: METOPROLOL TARTRATE 25 MG TABLET PO SCH ×3 (03:54→19:58)
[2018-09-23 05:59] LABS: BASOPHILS # (AUTO) 0.09 x10^3/uL (0-0.1); BASOPHILS % (AUTO) 1 % (0-1); EOSINOPHILS # (AUTO) 0.23 x10^3/uL (0-0.4); EOSINOPHILS % (AUTO) 3 % (1-7); LYMPHOCYTES # (AUTO) 2.14 x10^3/uL (1-3.4); LYMPHOCYTES % (AUTO) 24 % (22-44); MD NO; MEAN CORPUSCULAR HGB CONC 32.1 g/dL (32.4-35.8); MEAN CORPUSCULAR VOLUME 93.4 fL (80-100); MEAN PLATELET VOLUME 7.4 fL (7.4-10.4); MONOCYTES # (AUTO) 0.84 x10^3/uL (0.2-0.8); MONOCYTES % (AUTO) 10 % (2-9); NEUTROPHILS # (AUTO) 5.57 x10^3/uL (1.8-6.8); NEUTROPHILS % (AUTO) 63 % (42-75); PLATELET COUNT 474 x10^3/uL (130-400); RED BLOOD COUNT 3.28 x10^6/uL (3.82-5.3); RED CELL DISTRIBUTION WIDTH 16.5 % (9.6-15.2)
[2018-09-23 06:11] LABS: ANION GAP 8 mmol/L (5-15); CALCIUM 9.4 mg/dL (8.5-10.1); CHLORIDE 109 mmol/L (98-107); CREATININE 0.35 mg/dL (0.55-1.02)
[2018-09-23] MEDS: RANITIDINE 15 MG/ML ORAL SOL NG SCH ×2 (08:05→21:14)
[2018-09-23] MEDS: SODIUM CHLORIDE FLUSH 10ML SYR IVF SCH ×2 (08:06→21:15)
[2018-09-23] MEDS: ENOXAPARIN 60 MG/0.6 ML SQ SCH ×2 (08:07→21:14)
[2018-09-23] MEDS: METHYLNALTREXONE 12 MG/0.6 ML SYR SQ SCH (08:37)
[2018-09-23] MEDS: FENTANYL 25 MCG PATCH TD SCH (10:26)
[2018-09-23] MEDS ORDERED: FENTANYL REMOVE PATCH NOTE XX SCH (10:30)
[2018-09-23] MEDS: METHOCARBAMOL 500 MG TABLET PO PRN (10:37)
--- NOTE | 2018-09-23 14:54 | NUR ---
09/23/18--educated staff nuclear weapons officer on BID slide bed<>cardiac chair using bed linens. green sheet hung in room. Addendum: 09/23/18 at 1459 by Shabbir Cordova PT Amended: Links added.
[2018-09-23] MEDS: ERGOCALCIFEROL 8,000UNIT/ML NG SCH (15:43)
[2018-09-23] MEDS: METOPROLOL 1 MG/ML, 5ML IVPush PRN ×2 (18:33→21:29)
[2018-09-24] MEDS: METHOCARBAMOL 500 MG TABLET PO PRN (00:45)
[2018-09-24] MEDS: METOPROLOL 1 MG/ML, 5ML IVPush PRN ×4 (01:46→21:30)
[2018-09-24] MEDS: ACETAMINOPHEN 325 MG TABLET PO PRN (03:37)
[2018-09-24] MEDS: METOPROLOL TARTRATE 25 MG TABLET PO SCH (03:37)
[2018-09-24 05:15] LABS: BASOPHILS % (AUTO) 1 % (0-1); EOSINOPHILS # (AUTO) 0.28 x10^3/uL (0-0.4); EOSINOPHILS % (AUTO) 3 % (1-7); LYMPHOCYTES # (AUTO) 2.56 x10^3/uL (1-3.4); LYMPHOCYTES % (AUTO) 25 % (22-44); MD NO; MEAN CORPUSCULAR HEMOGLOBIN 31.3 pg (27.0-34.8); MEAN CORPUSCULAR HGB CONC 33.6 g/dL (32.4-35.8); MEAN CORPUSCULAR VOLUME 93.3 fL (80-100); MEAN PLATELET VOLUME 7.6 fL (7.4-10.4); MONOCYTES # (AUTO) 0.95 x10^3/uL (0.2-0.8); MONOCYTES % (AUTO) 9 % (2-9); NEUTROPHILS # (AUTO) 6.35 x10^3/uL (1.8-6.8); NEUTROPHILS % (AUTO) 62 % (42-75); PLATELET COUNT 457 x10^3/uL (130-400); RED CELL DISTRIBUTION WIDTH 16.7 % (9.6-15.2)
[2018-09-24 05:16] LABS: ANION GAP 10 mmol/L (5-15); CALCIUM 9.8 mg/dL (8.5-10.1); CHLORIDE 110 mmol/L (98-107); CREATININE 0.41 mg/dL (0.55-1.02)
[2018-09-24] MEDS: RANITIDINE 15 MG/ML ORAL SOL NG SCH ×2 (09:21→21:06)
[2018-09-24] MEDS: SODIUM CHLORIDE FLUSH 10ML SYR IVF SCH ×2 (09:21→20:56)
[2018-09-24] MEDS: ENOXAPARIN 60 MG/0.6 ML SQ SCH ×2 (09:21→21:44)
[2018-09-24] MEDS ORDERED: METOPROLOL TARTRATE 50 MG TABLET PO SCH (10:30)
[2018-09-24] MEDS: METOPROLOL TARTRATE 50 MG TABLET PO SCH ×2 (10:48→16:58)
[2018-09-24] MEDS: FENTANYL 12 MCG PATCH TD SCH (10:48)
[2018-09-24] MEDS: ERGOCALCIFEROL 8,000UNIT/ML NG SCH (16:58)
[2018-09-24] MEDS: DEXMEDETOMIDINE 200 MCG in SODIUM CHLORIDE 0.9% 48 ML IV PRN (23:44)
[2018-09-25] MEDS: METOPROLOL 1 MG/ML, 5ML IVPush PRN ×5 (01:26→17:01)
[2018-09-25] MEDS: METOPROLOL TARTRATE 50 MG TABLET PO SCH ×3 (02:40→18:18)
[2018-09-25 04:00] VITALS: BP 145/89
[2018-09-25 04:38] LABS: BASOPHILS # (AUTO) 0.11 x10^3/uL (0-0.1); BASOPHILS % (AUTO) 1 % (0-1); EOSINOPHILS % (AUTO) 1 % (1-7); LYMPHOCYTES # (AUTO) 2.14 x10^3/uL (1-3.4); LYMPHOCYTES % (AUTO) 23 % (22-44); MD NO; MEAN CORPUSCULAR HEMOGLOBIN 30.3 pg (27.0-34.8); MEAN CORPUSCULAR HGB CONC 32.3 g/dL (32.4-35.8); MEAN PLATELET VOLUME 7.5 fL (7.4-10.4); MONOCYTES # (AUTO) 0.78 x10^3/uL (0.2-0.8); MONOCYTES % (AUTO) 8 % (2-9); NEUTROPHILS # (AUTO) 6.38 x10^3/uL (1.8-6.8); NEUTROPHILS % (AUTO) 67 % (42-75); PLATELET COUNT 428 x10^3/uL (130-400); RED BLOOD COUNT 3.28 x10^6/uL (3.82-5.3); RED CELL DISTRIBUTION WIDTH 17.4 % (9.6-15.2)
[2018-09-25 04:43] LABS: ALBUMIN 3.2 g/dL (3.4-5.0); ANION GAP 5 mmol/L (5-15); CALCIUM 9.3 mg/dL (8.5-10.1); CHLORIDE 112 mmol/L (98-107)
[2018-09-25 04:53] LABS: ALANINE AMINOTRANSFERASE 46 U/L (12-78); ALKALINE PHOSPHATASE 209 U/L (45-117); BILIRUBIN,TOTAL 0.3 mg/dL (0.2-1.0); CREATININE 0.39 mg/dL (0.55-1.02); FREE T4 (FREE THYROXINE) 1.05 ng/dL (0.76-1.46); TOTAL PROTEIN 7.3 g/dL (6.4-8.2)
[2018-09-25] MEDS: DEXMEDETOMIDINE 200 MCG in SODIUM CHLORIDE 0.9% 48 ML IV PRN ×2 (06:20→13:50)
[2018-09-25] MEDS: ENOXAPARIN 60 MG/0.6 ML SQ SCH ×2 (11:34→20:47)
[2018-09-25] MEDS: RANITIDINE 15 MG/ML ORAL SOL NG SCH ×2 (11:35→20:47)
[2018-09-25] MEDS: ERGOCALCIFEROL 8,000UNIT/ML NG SCH (11:35)
[2018-09-25] MEDS ORDERED: METHYLNALTREXONE 12 MG/0.6 ML SQ ONE (11:38)
[2018-09-25] MEDS: METHYLNALTREXONE 12 MG/0.6 ML SYR SQ SCH (11:39)
[2018-09-25] MEDS ORDERED: SODIUM CHLORIDE 0.9%, 500ML IVBOLUS ONE ×2 (13:30→15:00)
[2018-09-25] MEDS ORDERED: DEXTROSE 4 GM TAB.CHEW PO PRN (15:30)
[2018-09-25] MEDS ORDERED: GLUCAGON 1 MG IM PRN (15:30)
[2018-09-25] MEDS: ALBUTEROL/IPRATROPIUM 2.5MG/0.5MG, 3 ML INLINE SCH ×3 (15:30→22:10)
[2018-09-25] MEDS ORDERED: PHARMACY MAY ADJ FOR RENAL FX MC SCH (15:30)
[2018-09-25] MEDS ORDERED: DEXTROSE 50%, 50ML SYRINGE IVPush PRN (15:30)
[2018-09-25] MEDS ORDERED: PROPOFOL 100 ML IV PRN (20:00)
[2018-09-25] MEDS: DEXMEDETOMIDINE 400 MCG in SODIUM CHLORIDE 0.9% 96 ML IV PRN (20:31)
[2018-09-25] MEDS: SODIUM CHLORIDE FLUSH 10ML SYR IVF SCH (20:43)
[2018-09-25 20:48] LABS: CULTURE INDICATED? YES; MICROSCOPIC INDICATED
[2018-09-25] MEDS: ACETAMINOPHEN 325 MG TABLET PO PRN (20:48)
[2018-09-25] MEDS ORDERED: DEXMEDETOMIDINE 400 MCG in SODIUM CHLORIDE 0.9% 96 ML IV PRN (23:30)
[2018-09-25] MEDS ORDERED: DEXMEDETOMIDINE 200 MCG in SODIUM CHLORIDE 0.9% 48 ML IV PRN (23:30)
[2018-09-26] MEDS: ALBUTEROL/IPRATROPIUM 2.5MG/0.5MG, 3 ML INLINE SCH ×6 (02:43→23:30)
[2018-09-26] MEDS: METOPROLOL TARTRATE 50 MG TABLET PO SCH (03:18)
[2018-09-26 04:00] VITALS: BP 142/105
[2018-09-26 04:40] LABS: BASOPHILS # (AUTO) 0.06 x10^3/uL (0-0.1); BASOPHILS % (AUTO) 1 % (0-1); EOSINOPHILS # (AUTO) 0.09 x10^3/uL (0-0.4); EOSINOPHILS % (AUTO) 1 % (1-7); LYMPHOCYTES # (AUTO) 2.66 x10^3/uL (1-3.4); LYMPHOCYTES % (AUTO) 28 % (22-44); MD NO; MEAN CORPUSCULAR HEMOGLOBIN 31.2 pg (27.0-34.8); MEAN CORPUSCULAR HGB CONC 33.1 g/dL (32.4-35.8); MEAN CORPUSCULAR VOLUME 94.2 fL (80-100); MEAN PLATELET VOLUME 7.7 fL (7.4-10.4); MONOCYTES % (AUTO) 8 % (2-9); NEUTROPHILS # (AUTO) 6.01 x10^3/uL (1.8-6.8); NEUTROPHILS % (AUTO) 63 % (42-75); PLATELET COUNT 373 x10^3/uL (130-400); RED CELL DISTRIBUTION WIDTH 17.6 % (9.6-15.2)
[2018-09-26 06:16] LABS: ANION GAP 7 mmol/L (5-15); CALCIUM 9.1 mg/dL (8.5-10.1); CHLORIDE 116 mmol/L (98-107); CREATININE 0.44 mg/dL (0.55-1.02)
[2018-09-26] MEDS: DEXMEDETOMIDINE 400 MCG in SODIUM CHLORIDE 0.9% 96 ML IV PRN (07:28)
[2018-09-26] MEDS: ENOXAPARIN 60 MG/0.6 ML SQ SCH ×2 (08:16→20:59)
[2018-09-26] MEDS: RANITIDINE 15 MG/ML ORAL SOL NG SCH ×2 (08:16→20:59)
[2018-09-26] MEDS: SODIUM CHLORIDE FLUSH 10ML SYR IVF SCH ×2 (08:17→20:59)
[2018-09-26] MEDS: QUETIAPINE 25MG TABLET GT SCH ×3 (09:51→20:58)
[2018-09-26] MEDS: ZIPRASIDONE 20 MG INJ IM PRN ×2 (10:37→23:14)
[2018-09-26] MEDS ORDERED: PHENYTOIN SODIUM 1,000 MG in SODIUM CHLORIDE 0.9% 100 ML IV ONE (12:30)
[2018-09-26] MEDS ORDERED: FILTER 0.22 MICRON IV ONE (12:30)
[2018-09-26] MEDS ORDERED: PROPOFOL 100 ML IV PRN (14:00)
[2018-09-26] MEDS ORDERED: LORazepam 2 MG/ML, 1ML IVPush ONE (14:00)
[2018-09-26] MEDS: ERGOCALCIFEROL 8,000UNIT/ML NG SCH (15:41)
[2018-09-27] MEDS: ALBUTEROL/IPRATROPIUM 2.5MG/0.5MG, 3 ML INLINE SCH ×6 (02:14→22:26)
[2018-09-27 04:00] VITALS: BP 106/70
[2018-09-27 06:16] LABS: ANION GAP 8 mmol/L (5-15); CALCIUM 8.9 mg/dL (8.5-10.1); CHLORIDE 113 mmol/L (98-107); CREATININE 0.38 mg/dL (0.55-1.02)
[2018-09-27 06:17] LABS: BASOPHILS # (AUTO) 0.02 x10^3/uL (0-0.1); BASOPHILS % (AUTO) 0 % (0-1); EOSINOPHILS # (AUTO) 0.14 x10^3/uL (0-0.4); EOSINOPHILS % (AUTO) 2 % (1-7); LYMPHOCYTES # (AUTO) 1.63 x10^3/uL (1-3.4); LYMPHOCYTES % (AUTO) 18 % (22-44); MD NO; MEAN CORPUSCULAR VOLUME 93.8 fL (80-100); MEAN PLATELET VOLUME 7.9 fL (7.4-10.4); MONOCYTES # (AUTO) 0.78 x10^3/uL (0.2-0.8); MONOCYTES % (AUTO) 9 % (2-9); NEUTROPHILS # (AUTO) 6.34 x10^3/uL (1.8-6.8); NEUTROPHILS % (AUTO) 71 % (42-75); PLATELET COUNT 394 x10^3/uL (130-400); RED BLOOD COUNT 3.09 x10^6/uL (3.82-5.3); RED CELL DISTRIBUTION WIDTH 17.7 % (9.6-15.2)
[2018-09-27] MEDS: METHYLNALTREXONE 12 MG/0.6 ML SYR SQ SCH (08:30)
[2018-09-27] MEDS: PHENYTOIN SODIUM 50 MG/ML, 2ML IVPush SCH ×3 (09:03→21:17)
[2018-09-27] MEDS: ENOXAPARIN 60 MG/0.6 ML SQ SCH ×2 (09:03→21:17)
[2018-09-27] MEDS: RANITIDINE 15 MG/ML ORAL SOL NG SCH ×2 (09:03→21:16)
[2018-09-27] MEDS: QUETIAPINE 25MG TABLET GT SCH ×3 (09:03→21:16)
[2018-09-27] MEDS: SODIUM CHLORIDE FLUSH 10ML SYR IVF SCH ×2 (09:04→21:17)
[2018-09-27] MEDS: FENTANYL REMOVE PATCH NOTE XX SCH (12:10)
[2018-09-27] MEDS: FENTANYL 12 MCG PATCH TD SCH (12:11)
[2018-09-27] MEDS: LINEZOLID PMX 600MG/300ML 300 ML IV SCH (12:49)
[2018-09-27] MEDS: ZIPRASIDONE 20 MG INJ IM PRN (15:28)
[2018-09-27] MEDS: ERGOCALCIFEROL 8,000UNIT/ML NG SCH (15:36)
[2018-09-28] MEDS: LINEZOLID PMX 600MG/300ML 300 ML IV SCH ×2 (00:10→12:49)
[2018-09-28] MEDS: ALBUTEROL/IPRATROPIUM 2.5MG/0.5MG, 3 ML INLINE SCH ×2 (02:23→06:41)
[2018-09-28 04:00] VITALS: BP 160/89
[2018-09-28] MEDS: ZIPRASIDONE 20 MG INJ IM PRN (04:07)
[2018-09-28 05:47] LABS: BASOPHILS # (AUTO) 0.06 x10^3/uL (0-0.1); BASOPHILS % (AUTO) 1 % (0-1); EOSINOPHILS # (AUTO) 0.23 x10^3/uL (0-0.4); EOSINOPHILS % (AUTO) 3 % (1-7); LYMPHOCYTES # (AUTO) 1.75 x10^3/uL (1-3.4); LYMPHOCYTES % (AUTO) 23 % (22-44); MD NO; MEAN CORPUSCULAR HEMOGLOBIN 31.5 pg (27.0-34.8); MEAN CORPUSCULAR HGB CONC 33.8 g/dL (32.4-35.8); MEAN CORPUSCULAR VOLUME 93.3 fL (80-100); MEAN PLATELET VOLUME 7.6 fL (7.4-10.4); MONOCYTES # (AUTO) 0.74 x10^3/uL (0.2-0.8); MONOCYTES % (AUTO) 10 % (2-9); NEUTROPHILS # (AUTO) 4.86 x10^3/uL (1.8-6.8); NEUTROPHILS % (AUTO) 64 % (42-75); PLATELET COUNT 357 x10^3/uL (130-400); RED BLOOD COUNT 3.09 x10^6/uL (3.82-5.3); RED CELL DISTRIBUTION WIDTH 16.8 % (9.6-15.2)
[2018-09-28 06:03] LABS: ANION GAP 8 mmol/L (5-15); CALCIUM 8.6 mg/dL (8.5-10.1); CHLORIDE 108 mmol/L (98-107); CREATININE 0.36 mg/dL (0.55-1.02); TRIGLYCERIDES 192 mg/dL (50-200)
[2018-09-28] MEDS: QUETIAPINE 25MG TABLET GT SCH ×3 (08:50→20:43)
[2018-09-28] MEDS: RANITIDINE 15 MG/ML ORAL SOL NG SCH ×2 (08:50→20:43)
[2018-09-28] MEDS: PHENYTOIN SODIUM 50 MG/ML, 2ML IVPush SCH (08:51)
[2018-09-28] MEDS: ENOXAPARIN 60 MG/0.6 ML SQ SCH ×2 (08:51→20:43)
[2018-09-28] MEDS: SODIUM CHLORIDE FLUSH 10ML SYR IVF SCH ×2 (08:52→20:44)
[2018-09-28] MEDS ORDERED: LEVETIRACETAM 1,000 MG in SODIUM CHLORIDE 0.9% 100 ML IV ONE (13:30)
[2018-09-28] MEDS: ERGOCALCIFEROL 8,000UNIT/ML NG SCH (17:41)
[2018-09-28] MEDS: LEVETIRACETAM 500 MG TABLET PO SCH (20:43)
[2018-09-29] MEDS: LINEZOLID PMX 600MG/300ML 300 ML IV SCH (00:07)
[2018-09-29 04:00] VITALS: BP 135/90
[2018-09-29 04:54] LABS: ANION GAP 8 mmol/L (5-15); CALCIUM 9.4 mg/dL (8.5-10.1); CHLORIDE 106 mmol/L (98-107)
[2018-09-29 04:55] LABS: CREATININE 0.38 mg/dL (0.55-1.02)
[2018-09-29 04:58] LABS: BASOPHILS # (AUTO) 0.07 x10^3/uL (0-0.1); BASOPHILS % (AUTO) 1 % (0-1); EOSINOPHILS # (AUTO) 0.19 x10^3/uL (0-0.4); EOSINOPHILS % (AUTO) 2 % (1-7); LYMPHOCYTES % (AUTO) 21 % (22-44); MD SCAN; MEAN CORPUSCULAR HEMOGLOBIN 31.4 pg (27.0-34.8); MEAN CORPUSCULAR HGB CONC 33.7 g/dL (32.4-35.8); MEAN CORPUSCULAR VOLUME 93.3 fL (80-100); MEAN PLATELET VOLUME 7.9 fL (7.4-10.4); MONOCYTES # (AUTO) 1.02 x10^3/uL (0.2-0.8); MONOCYTES % (AUTO) 11 % (2-9); NEUTROPHILS # (AUTO) 5.81 x10^3/uL (1.8-6.8); NEUTROPHILS % (AUTO) 65 % (42-75); PLATELET COUNT 213 x10^3/uL (130-400); RED BLOOD COUNT 3.11 x10^6/uL (3.82-5.3); RED CELL DISTRIBUTION WIDTH 17.7 % (9.6-15.2)
[2018-09-29] MEDS: SODIUM CHLORIDE FLUSH 10ML SYR IVF SCH ×2 (10:48→22:03)
[2018-09-29] MEDS: NITROFURANTOIN (MACROBID) 100 MG CAPSULE PO SCH ×2 (10:49→22:02)
[2018-09-29] MEDS: QUETIAPINE 25MG TABLET GT SCH ×3 (10:49→22:02)
[2018-09-29] MEDS: ENOXAPARIN 60 MG/0.6 ML SQ SCH ×2 (10:49→22:02)
[2018-09-29] MEDS: LEVETIRACETAM 500 MG TABLET PO SCH ×2 (10:49→22:02)
[2018-09-29] MEDS: RANITIDINE 15 MG/ML ORAL SOL NG SCH ×2 (10:50→22:02)
[2018-09-29] MEDS ORDERED: ACETAMINOPHEN 650 MG SUPP ONE (15:43)
[2018-09-29] MEDS: ERGOCALCIFEROL 8,000UNIT/ML NG SCH (16:18)
[2018-09-30 04:00] VITALS: BP 145/80
[2018-09-30 08:24] LABS: BASOPHILS # (AUTO) 0.04 x10^3/uL (0-0.1); BASOPHILS % (AUTO) 1 % (0-1); EOSINOPHILS # (AUTO) 0.09 x10^3/uL (0-0.4); EOSINOPHILS % (AUTO) 2 % (1-7); LYMPHOCYTES # (AUTO) 1.43 x10^3/uL (1-3.4); LYMPHOCYTES % (AUTO) 24 % (22-44); MD NO; MEAN CORPUSCULAR HGB CONC 32.3 g/dL (32.4-35.8); MEAN CORPUSCULAR VOLUME 92.8 fL (80-100); MEAN PLATELET VOLUME 7.5 fL (7.4-10.4); MONOCYTES # (AUTO) 0.61 x10^3/uL (0.2-0.8); MONOCYTES % (AUTO) 10 % (2-9); NEUTROPHILS # (AUTO) 3.72 x10^3/uL (1.8-6.8); NEUTROPHILS % (AUTO) 63 % (42-75); PLATELET COUNT 413 x10^3/uL (130-400); RED BLOOD COUNT 3.56 x10^6/uL (3.82-5.3)
[2018-09-30 08:25] LABS: ANION GAP 9 mmol/L (5-15); CALCIUM 9.7 mg/dL (8.5-10.1); CHLORIDE 106 mmol/L (98-107); CREATININE 0.35 mg/dL (0.55-1.02)
[2018-09-30] MEDS: SPIRONOLACTONE 25 MG TABLET PO SCH ×2 (09:14→21:46)
[2018-09-30] MEDS: ENALAPRIL 5MG TABLET PO SCH ×2 (09:15→21:44)
[2018-09-30] MEDS: ENOXAPARIN 60 MG/0.6 ML SQ SCH ×2 (09:15→21:44)
[2018-09-30] MEDS: LEVETIRACETAM 500 MG TABLET PO SCH ×2 (09:15→21:44)
[2018-09-30] MEDS: QUETIAPINE 25MG TABLET GT SCH ×3 (09:15→21:44)
[2018-09-30] MEDS: NITROFURANTOIN (MACROBID) 100 MG CAPSULE PO SCH ×2 (09:15→21:44)
[2018-09-30] MEDS: SODIUM CHLORIDE FLUSH 10ML SYR IVF SCH ×2 (09:16→21:45)
[2018-09-30] MEDS: RANITIDINE 15 MG/ML ORAL SOL NG SCH ×2 (09:17→21:44)
[2018-09-30] MEDS: FENTANYL REMOVE PATCH NOTE XX SCH (11:00)
[2018-09-30] MEDS: FENTANYL 12 MCG PATCH TD SCH (11:33)
[2018-09-30] MEDS: ERGOCALCIFEROL 8,000UNIT/ML NG SCH (16:18)
[2018-10-01 04:00] VITALS: BP 110/69
[2018-10-01 05:32] LABS: BASOPHILS # (AUTO) 0.04 x10^3/uL (0-0.1); BASOPHILS % (AUTO) 1 % (0-1); EOSINOPHILS % (AUTO) 1 % (1-7); LYMPHOCYTES # (AUTO) 1.56 x10^3/uL (1-3.4); LYMPHOCYTES % (AUTO) 20 % (22-44); MD NO; MEAN CORPUSCULAR HEMOGLOBIN 30.2 pg (27.0-34.8); MEAN CORPUSCULAR HGB CONC 32.4 g/dL (32.4-35.8); MEAN CORPUSCULAR VOLUME 93.3 fL (80-100); MEAN PLATELET VOLUME 7.9 fL (7.4-10.4); MONOCYTES # (AUTO) 0.92 x10^3/uL (0.2-0.8); MONOCYTES % (AUTO) 12 % (2-9); NEUTROPHILS # (AUTO) 5.14 x10^3/uL (1.8-6.8); NEUTROPHILS % (AUTO) 66 % (42-75); PLATELET COUNT 387 x10^3/uL (130-400); RED BLOOD COUNT 3.55 x10^6/uL (3.82-5.3); RED CELL DISTRIBUTION WIDTH 17.4 % (9.6-15.2)
[2018-10-01 05:44] LABS: CHLORIDE 109 mmol/L (98-107)
[2018-10-01 06:01] LABS: ANION GAP 8 mmol/L (5-15); CALCIUM 9.2 mg/dL (8.5-10.1); CREATININE 0.36 mg/dL (0.55-1.02)
[2018-10-01] MEDS: NITROFURANTOIN (MACROBID) 100 MG CAPSULE PO SCH (08:29)
[2018-10-01] MEDS: SPIRONOLACTONE 25 MG TABLET PO SCH ×3 (08:29→21:28)
[2018-10-01] MEDS: QUETIAPINE 25MG TABLET GT SCH ×4 (08:30→21:29)
[2018-10-01] MEDS: LEVETIRACETAM 500 MG TABLET PO SCH ×2 (08:30→21:31)
[2018-10-01] MEDS: SODIUM CHLORIDE FLUSH 10ML SYR IVF SCH ×2 (08:34→21:31)
[2018-10-01] MEDS: RANITIDINE 15 MG/ML ORAL SOL NG SCH ×2 (08:34→21:26)
[2018-10-01] MEDS: ENOXAPARIN 60 MG/0.6 ML SQ SCH ×2 (08:35→21:27)
[2018-10-01] MEDS ORDERED: NITROFURANTOIN 5MG/ML ORAL SUSP GT SCH (09:00)
[2018-10-01] MEDS: ENALAPRIL 5MG TABLET PO SCH ×2 (09:04→21:00)
[2018-10-01] MEDS ORDERED: IPRATROPIUM 0.5 MG/2.5 ML INHA ONE (10:34)
[2018-10-01] MEDS: IPRATROPIUM 0.5 MG/2.5 ML INHA NPPB SCH ×3 (14:42→23:00)
[2018-10-01] MEDS: ERGOCALCIFEROL 8,000UNIT/ML NG SCH (17:39)
[2018-10-01] MEDS: ACETAMINOPHEN 325 MG TABLET PO PRN (21:27)
[2018-10-01] MEDS: NITROFURANTOIN 5MG/ML ORAL SUSP GT SCH (21:45)
[2018-10-02] MEDS: IPRATROPIUM 0.5 MG/2.5 ML INHA NPPB SCH ×6 (03:10→23:30)
[2018-10-02] MEDS: NITROFURANTOIN 5MG/ML ORAL SUSP GT SCH ×4 (03:56→20:51)
[2018-10-02 04:00] VITALS: BP 124/55
[2018-10-02] MEDS: LEVETIRACETAM 500 MG TABLET PO SCH ×2 (09:06→20:52)
[2018-10-02] MEDS: ENALAPRIL 5MG TABLET PO SCH ×2 (09:06→20:53)
[2018-10-02] MEDS: SPIRONOLACTONE 25 MG TABLET PO SCH ×2 (09:06→20:53)
[2018-10-02] MEDS: QUETIAPINE 25MG TABLET GT SCH ×3 (09:07→20:52)
[2018-10-02] MEDS: SODIUM CHLORIDE FLUSH 10ML SYR IVF SCH ×2 (09:08→20:54)
[2018-10-02] MEDS: ENOXAPARIN 60 MG/0.6 ML SQ SCH ×2 (09:08→20:53)
[2018-10-02] MEDS: RANITIDINE 15 MG/ML ORAL SOL NG SCH ×2 (09:08→20:51)
[2018-10-02] MEDS: ERGOCALCIFEROL 8,000UNIT/ML NG SCH (16:34)
[2018-10-02] MEDS: ACETAMINOPHEN 325 MG TABLET PO PRN (20:55)
[2018-10-03] MEDS: IPRATROPIUM 0.5 MG/2.5 ML INHA NPPB SCH ×6 (02:36→22:47)
[2018-10-03] MEDS: NITROFURANTOIN 5MG/ML ORAL SUSP GT SCH ×2 (03:22→09:07)
[2018-10-03 04:00] VITALS: BP 121/84
[2018-10-03 06:32] LABS: BASOPHILS # (AUTO) 0.06 x10^3/uL (0-0.1); BASOPHILS % (AUTO) 1 % (0-1); EOSINOPHILS # (AUTO) 0.07 x10^3/uL (0-0.4); EOSINOPHILS % (AUTO) 1 % (1-7); LYMPHOCYTES # (AUTO) 1.46 x10^3/uL (1-3.4); LYMPHOCYTES % (AUTO) 21 % (22-44); MD NO; MEAN CORPUSCULAR HEMOGLOBIN 30.2 pg (27.0-34.8); MEAN CORPUSCULAR HGB CONC 33.1 g/dL (32.4-35.8); MEAN CORPUSCULAR VOLUME 91.3 fL (80-100); MEAN PLATELET VOLUME 7.6 fL (7.4-10.4); MONOCYTES # (AUTO) 0.79 x10^3/uL (0.2-0.8); MONOCYTES % (AUTO) 11 % (2-9); NEUTROPHILS # (AUTO) 4.62 x10^3/uL (1.8-6.8); NEUTROPHILS % (AUTO) 66 % (42-75); PLATELET COUNT 395 x10^3/uL (130-400); RED BLOOD COUNT 3.73 x10^6/uL (3.82-5.3); RED CELL DISTRIBUTION WIDTH 16.6 % (9.6-15.2)
[2018-10-03] MEDS: LACTULOSE 20 GM/30 ML UDC NG PRN (06:42)
[2018-10-03 06:44] LABS: ALANINE AMINOTRANSFERASE 35 U/L (12-78); ALBUMIN 3.5 g/dL (3.4-5.0); ANION GAP 10 mmol/L (5-15); CALCIUM 9.8 mg/dL (8.5-10.1); CHLORIDE 104 mmol/L (98-107)
[2018-10-03 06:49] LABS: ALKALINE PHOSPHATASE 150 U/L (45-117); BILIRUBIN,TOTAL 0.2 mg/dL (0.2-1.0); CREATININE 0.45 mg/dL (0.55-1.02); TOTAL PROTEIN 7.4 g/dL (6.4-8.2)
[2018-10-03] MEDS: RANITIDINE 15 MG/ML ORAL SOL NG SCH ×2 (09:07→21:26)
[2018-10-03] MEDS: SPIRONOLACTONE 25 MG TABLET PO SCH ×2 (09:08→23:26)
[2018-10-03] MEDS: QUETIAPINE 25MG TABLET GT SCH ×3 (09:08→21:27)
[2018-10-03] MEDS: LEVETIRACETAM 500 MG TABLET PO SCH ×2 (09:08→21:27)
[2018-10-03] MEDS: ENOXAPARIN 60 MG/0.6 ML SQ SCH ×2 (09:08→21:28)
[2018-10-03] MEDS: SODIUM CHLORIDE FLUSH 10ML SYR IVF SCH ×2 (09:09→21:28)
[2018-10-03] MEDS: ENALAPRIL 5MG TABLET PO SCH ×2 (09:09→21:27)
[2018-10-03] MEDS: FENTANYL REMOVE PATCH NOTE XX SCH (11:05)
[2018-10-03] MEDS: FENTANYL 12 MCG PATCH TD SCH (11:05)
[2018-10-03] MEDS: ACETAMINOPHEN 325 MG TABLET PO PRN (12:12)
[2018-10-03] MEDS: ERGOCALCIFEROL 8,000UNIT/ML NG SCH (16:44)
[2018-10-04] MEDS: IPRATROPIUM 0.5 MG/2.5 ML INHA NPPB SCH ×2 (03:00→06:53)
[2018-10-04 04:00] VITALS: BP 93/42
[2018-10-04 04:31] LABS: BASOPHILS # (AUTO) 0.04 x10^3/uL (0-0.1); BASOPHILS % (AUTO) 1 % (0-1); EOSINOPHILS # (AUTO) 0.11 x10^3/uL (0-0.4); EOSINOPHILS % (AUTO) 2 % (1-7); LYMPHOCYTES # (AUTO) 1.45 x10^3/uL (1-3.4); LYMPHOCYTES % (AUTO) 19 % (22-44); MD NO; MEAN CORPUSCULAR HEMOGLOBIN 29.2 pg (27.0-34.8); MEAN CORPUSCULAR HGB CONC 31.6 g/dL (32.4-35.8); MEAN CORPUSCULAR VOLUME 92.3 fL (80-100); MEAN PLATELET VOLUME 7.8 fL (7.4-10.4); MONOCYTES # (AUTO) 0.82 x10^3/uL (0.2-0.8); MONOCYTES % (AUTO) 11 % (2-9); NEUTROPHILS % (AUTO) 68 % (42-75); PLATELET COUNT 386 x10^3/uL (130-400); RED BLOOD COUNT 3.71 x10^6/uL (3.82-5.3); RED CELL DISTRIBUTION WIDTH 16.6 % (9.6-15.2)
[2018-10-04 04:44] LABS: CHLORIDE 103 mmol/L (98-107)
[2018-10-04 04:45] LABS: ANION GAP 8 mmol/L (5-15); CALCIUM 9.8 mg/dL (8.5-10.1); CREATININE 0.46 mg/dL (0.55-1.02)
[2018-10-04] MEDS: ENALAPRIL 5MG TABLET PO SCH ×2 (09:17→20:41)
[2018-10-04] MEDS: RANITIDINE 15 MG/ML ORAL SOL NG SCH ×2 (09:18→20:41)
[2018-10-04] MEDS: ENOXAPARIN 60 MG/0.6 ML SQ SCH ×2 (09:18→20:42)
[2018-10-04] MEDS: SPIRONOLACTONE 25 MG TABLET PO SCH ×2 (09:18→20:41)
[2018-10-04] MEDS: QUETIAPINE 25MG TABLET GT SCH ×3 (09:18→20:41)
[2018-10-04] MEDS: LEVETIRACETAM 500 MG TABLET PO SCH ×2 (09:18→20:41)
[2018-10-04] MEDS: SODIUM CHLORIDE FLUSH 10ML SYR IVF SCH ×2 (09:19→20:42)
[2018-10-04] MEDS: ACETAMINOPHEN 325 MG TABLET PO PRN (12:37)
[2018-10-04] MEDS: ERGOCALCIFEROL 8,000UNIT/ML NG SCH (16:40)
[2018-10-05 04:00] VITALS: BP 100/52
[2018-10-05 04:30] LABS: BASOPHILS # (AUTO) 0.08 x10^3/uL (0-0.1); BASOPHILS % (AUTO) 1 % (0-1); EOSINOPHILS # (AUTO) 0.06 x10^3/uL (0-0.4); EOSINOPHILS % (AUTO) 1 % (1-7); LYMPHOCYTES # (AUTO) 1.72 x10^3/uL (1-3.4); LYMPHOCYTES % (AUTO) 21 % (22-44); MD NO; MEAN CORPUSCULAR HEMOGLOBIN 30.4 pg (27.0-34.8); MEAN CORPUSCULAR HGB CONC 33.5 g/dL (32.4-35.8); MEAN CORPUSCULAR VOLUME 90.9 fL (80-100); MEAN PLATELET VOLUME 7.7 fL (7.4-10.4); MONOCYTES # (AUTO) 0.98 x10^3/uL (0.2-0.8); MONOCYTES % (AUTO) 12 % (2-9); NEUTROPHILS # (AUTO) 5.47 x10^3/uL (1.8-6.8); NEUTROPHILS % (AUTO) 66 % (42-75); PLATELET COUNT 425 x10^3/uL (130-400); RED BLOOD COUNT 3.79 x10^6/uL (3.82-5.3); RED CELL DISTRIBUTION WIDTH 16.3 % (9.6-15.2)
[2018-10-05 04:41] LABS: ANION GAP 8 mmol/L (5-15); CALCIUM 9.2 mg/dL (8.5-10.1); CHLORIDE 107 mmol/L (98-107); CREATININE 0.51 mg/dL (0.55-1.02)
[2018-10-05] MEDS: LEVETIRACETAM 500 MG TABLET PO SCH ×2 (09:23→20:52)
[2018-10-05] MEDS: RANITIDINE 15 MG/ML ORAL SOL NG SCH ×2 (09:23→20:52)
[2018-10-05] MEDS: ENOXAPARIN 60 MG/0.6 ML SQ SCH ×2 (09:23→20:53)
[2018-10-05] MEDS: SPIRONOLACTONE 25 MG TABLET PO SCH (09:24)
[2018-10-05] MEDS: SODIUM CHLORIDE FLUSH 10ML SYR IVF SCH ×2 (09:24→20:52)
[2018-10-05] MEDS: QUETIAPINE 25MG TABLET GT SCH ×3 (09:24→20:51)
[2018-10-05] MEDS: ENALAPRIL 5MG TABLET PO SCH ×2 (09:24→20:53)
[2018-10-05] MEDS: METOPROLOL TARTRATE 25 MG TABLET PO SCH ×2 (11:00→17:44)
[2018-10-05] MEDS: METHOCARBAMOL 500 MG TABLET PO PRN (11:07)
[2018-10-05] MEDS ORDERED: ADENOSINE 6 MG/2 ML ONE (13:39)
[2018-10-05] MEDS ORDERED: ADENOSINE 6 MG/2 ML IVPush ONE (14:00)
[2018-10-05] MEDS: ERGOCALCIFEROL 8,000UNIT/ML NG SCH (16:56)
[2018-10-05] MEDS: ZIPRASIDONE 20 MG INJ IM PRN (20:45)
[2018-10-06] MEDS: METOPROLOL TARTRATE 25 MG TABLET PO SCH ×3 (02:56→17:43)
[2018-10-06 04:00] VITALS: BP 95/46
[2018-10-06 05:14] LABS: BASOPHILS # (AUTO) 0.05 x10^3/uL (0-0.1); BASOPHILS % (AUTO) 1 % (0-1); EOSINOPHILS # (AUTO) 0.03 x10^3/uL (0-0.4); EOSINOPHILS % (AUTO) 0 % (1-7); LYMPHOCYTES # (AUTO) 2.01 x10^3/uL (1-3.4); LYMPHOCYTES % (AUTO) 24 % (22-44); MD NO; MEAN CORPUSCULAR HEMOGLOBIN 30.6 pg (27.0-34.8); MEAN CORPUSCULAR HGB CONC 33.3 g/dL (32.4-35.8); MEAN CORPUSCULAR VOLUME 91.8 fL (80-100); MEAN PLATELET VOLUME 7.8 fL (7.4-10.4); MONOCYTES # (AUTO) 0.92 x10^3/uL (0.2-0.8); MONOCYTES % (AUTO) 11 % (2-9); NEUTROPHILS # (AUTO) 5.26 x10^3/uL (1.8-6.8); NEUTROPHILS % (AUTO) 64 % (42-75); PLATELET COUNT 395 x10^3/uL (130-400); RED BLOOD COUNT 3.75 x10^6/uL (3.82-5.3)
[2018-10-06 05:24] LABS: ANION GAP 7 mmol/L (5-15); CALCIUM 9.3 mg/dL (8.5-10.1); CHLORIDE 108 mmol/L (98-107); CREATININE 0.69 mg/dL (0.55-1.02)
[2018-10-06] MEDS: SODIUM CHLORIDE FLUSH 10ML SYR IVF SCH ×2 (09:00→21:10)
[2018-10-06] MEDS: LEVETIRACETAM 500 MG TABLET PO SCH ×2 (09:00→20:57)
[2018-10-06] MEDS: ENALAPRIL 5MG TABLET PO SCH ×2 (09:00→20:55)
[2018-10-06] MEDS: QUETIAPINE 25MG TABLET GT SCH ×3 (10:17→20:56)
[2018-10-06] MEDS: SPIRONOLACTONE 25 MG TABLET PO SCH (10:18)
[2018-10-06] MEDS: RANITIDINE 15 MG/ML ORAL SOL NG SCH ×2 (10:20→20:56)
[2018-10-06] MEDS: ESMOLOL/NS PMX 250 ML IV PRN (12:19)
[2018-10-06] MEDS: ENOXAPARIN 60 MG/0.6 ML SQ SCH ×2 (12:28→20:57)
[2018-10-06] MEDS: FENTANYL 12 MCG PATCH TD SCH (13:25)
[2018-10-06] MEDS: FENTANYL REMOVE PATCH NOTE XX SCH (13:25)
[2018-10-06] MEDS: ERGOCALCIFEROL 8,000UNIT/ML NG SCH (17:42)
[2018-10-07] MEDS: METOPROLOL TARTRATE 25 MG TABLET PO SCH ×3 (02:29→18:13)
[2018-10-07] MEDS: ESMOLOL/NS PMX 250 ML IV PRN ×3 (03:39→16:27)
[2018-10-07 04:00] VITALS: BP 132/78
[2018-10-07 04:32] LABS: ALANINE AMINOTRANSFERASE 31 U/L (12-78); ALBUMIN 3.1 g/dL (3.4-5.0); ANION GAP 9 mmol/L (5-15); CALCIUM 8.9 mg/dL (8.5-10.1); CHLORIDE 111 mmol/L (98-107); CREATININE 0.49 mg/dL (0.55-1.02)
[2018-10-07 04:33] LABS: BASOPHILS # (AUTO) 0.04 x10^3/uL (0-0.1); BASOPHILS % (AUTO) 1 % (0-1); EOSINOPHILS # (AUTO) 0.05 x10^3/uL (0-0.4); EOSINOPHILS % (AUTO) 1 % (1-7); LYMPHOCYTES # (AUTO) 1.53 x10^3/uL (1-3.4); LYMPHOCYTES % (AUTO) 17 % (22-44); MD NO; MEAN CORPUSCULAR HEMOGLOBIN 30.1 pg (27.0-34.8); MEAN CORPUSCULAR HGB CONC 32.8 g/dL (32.4-35.8); MEAN CORPUSCULAR VOLUME 91.9 fL (80-100); MEAN PLATELET VOLUME 7.9 fL (7.4-10.4); MONOCYTES # (AUTO) 0.86 x10^3/uL (0.2-0.8); MONOCYTES % (AUTO) 10 % (2-9); NEUTROPHILS # (AUTO) 6.34 x10^3/uL (1.8-6.8); NEUTROPHILS % (AUTO) 72 % (42-75); PLATELET COUNT 328 x10^3/uL (130-400); RED BLOOD COUNT 3.55 x10^6/uL (3.82-5.3); RED CELL DISTRIBUTION WIDTH 16.2 % (9.6-15.2)
[2018-10-07 04:34] LABS: ALKALINE PHOSPHATASE 107 U/L (45-117); BILIRUBIN,TOTAL 0.2 mg/dL (0.2-1.0); TOTAL PROTEIN 6.8 g/dL (6.4-8.2)
[2018-10-07] MEDS: RANITIDINE 15 MG/ML ORAL SOL NG SCH ×2 (08:39→20:31)
[2018-10-07] MEDS: QUETIAPINE 25MG TABLET GT SCH ×3 (08:39→20:30)
[2018-10-07] MEDS: SODIUM CHLORIDE FLUSH 10ML SYR IVF SCH ×2 (08:39→20:31)
[2018-10-07] MEDS: LEVETIRACETAM 500 MG TABLET PO SCH ×2 (08:40→20:30)
[2018-10-07] MEDS: SPIRONOLACTONE 25 MG TABLET PO SCH (08:40)
[2018-10-07] MEDS: ENALAPRIL 5MG TABLET PO SCH ×2 (08:42→20:31)
[2018-10-07] MEDS: ENOXAPARIN 60 MG/0.6 ML SQ SCH ×2 (08:42→20:43)
[2018-10-07] MEDS: ACETAMINOPHEN 325 MG TABLET PO PRN ×2 (14:52→20:30)
--- NOTE | 2018-10-07 15:39 | NUR ---
The splint wear schedule is as follows: b/l UE splints: alternate R <>L every two hours --thought to coincide with turn schedule. Restraint applied as needed for safety. Pillowcase is acceptable skin barrier between patient's skin and splint. Splint and stockinette of off splint secured to bed rail as advised by nursing. Splints to be marked with patient name next session. Will continue to follow. Example: R UE splint on for two hours, during Q2 turning, doff R UE splint and don L UE splint which is to remain on until next turning session then don R UE splint. Stockinette / Pillowcases for skin protection. Addendum: 10/07/18 at 1541 by An Dang OT Amended: Links added.
[2018-10-07] MEDS: ERGOCALCIFEROL 8,000UNIT/ML NG SCH (16:30)
[2018-10-08] MEDS: ESMOLOL/NS PMX 250 ML IV PRN ×3 (00:05→12:52)
[2018-10-08] MEDS: METOPROLOL TARTRATE 25 MG TABLET PO SCH (02:35)
[2018-10-08 04:00] VITALS: BP 128/71
[2018-10-08] MEDS: ACETAMINOPHEN 325 MG TABLET PO PRN ×2 (05:27→11:09)
[2018-10-08] MEDS ORDERED: METOPROLOL TARTRATE 100 MG TABLET ONE (08:34)
[2018-10-08] MEDS: VERAPAMIL 120MG TABLET PO SCH ×3 (10:46→20:06)
[2018-10-08] MEDS: SPIRONOLACTONE 25 MG TABLET PO SCH (10:47)
[2018-10-08] MEDS: LEVETIRACETAM 500 MG TABLET PO SCH ×2 (10:47→20:05)
[2018-10-08] MEDS: QUETIAPINE 25MG TABLET GT SCH ×3 (10:47→20:04)
[2018-10-08] MEDS: ENALAPRIL 5MG TABLET PO SCH ×2 (10:47→20:04)
[2018-10-08] MEDS: METOPROLOL TARTRATE 100 MG TABLET PO SCH ×2 (10:48→17:00)
[2018-10-08] MEDS: ENOXAPARIN 60 MG/0.6 ML SQ SCH ×2 (10:48→20:06)
[2018-10-08] MEDS: SODIUM CHLORIDE FLUSH 10ML SYR IVF SCH ×2 (10:48→20:06)
[2018-10-08] MEDS: RANITIDINE 15 MG/ML ORAL SOL NG SCH ×2 (12:53→20:06)
[2018-10-08] MEDS: ERGOCALCIFEROL 8,000UNIT/ML NG SCH (18:17)
[2018-10-09] MEDS: METOPROLOL TARTRATE 100 MG TABLET PO SCH ×3 (00:30→15:27)
[2018-10-09 04:00] VITALS: BP 125/72
[2018-10-09] MEDS ORDERED: METOPROLOL TARTRATE 50 MG TABLET ONE ×2 (08:23→15:23)
[2018-10-09 08:58] LABS: BASOPHILS # (AUTO) 0.02 x10^3/uL (0-0.1); BASOPHILS % (AUTO) 0 % (0-1); EOSINOPHILS # (AUTO) 0.05 x10^3/uL (0-0.4); EOSINOPHILS % (AUTO) 1 % (1-7); LYMPHOCYTES # (AUTO) 1.37 x10^3/uL (1-3.4); LYMPHOCYTES % (AUTO) 24 % (22-44); MD NO; MEAN CORPUSCULAR HEMOGLOBIN 29.6 pg (27.0-34.8); MEAN CORPUSCULAR HGB CONC 32.5 g/dL (32.4-35.8); MEAN CORPUSCULAR VOLUME 91.1 fL (80-100); MEAN PLATELET VOLUME 7.7 fL (7.4-10.4); MONOCYTES # (AUTO) 0.68 x10^3/uL (0.2-0.8); MONOCYTES % (AUTO) 12 % (2-9); NEUTROPHILS # (AUTO) 3.56 x10^3/uL (1.8-6.8); NEUTROPHILS % (AUTO) 63 % (42-75); PLATELET COUNT 323 x10^3/uL (130-400); RED BLOOD COUNT 3.55 x10^6/uL (3.82-5.3); RED CELL DISTRIBUTION WIDTH 16.1 % (9.6-15.2)
[2018-10-09 09:00] LABS: ANION GAP 9 mmol/L (5-15); CALCIUM 9.3 mg/dL (8.5-10.1); CHLORIDE 110 mmol/L (98-107)
[2018-10-09] MEDS: SPIRONOLACTONE 25 MG TABLET PO SCH (09:10)
[2018-10-09] MEDS: VERAPAMIL 120MG TABLET PO SCH ×3 (09:11→20:36)
[2018-10-09] MEDS: ENALAPRIL 5MG TABLET PO SCH ×2 (09:11→20:35)
[2018-10-09] MEDS: QUETIAPINE 25MG TABLET GT SCH ×3 (09:11→20:35)
[2018-10-09] MEDS: LEVETIRACETAM 500 MG TABLET PO SCH ×2 (09:12→20:36)
[2018-10-09] MEDS: RANITIDINE 15 MG/ML ORAL SOL NG SCH ×2 (09:12→20:54)
[2018-10-09] MEDS: SODIUM CHLORIDE FLUSH 10ML SYR IVF SCH ×2 (09:13→20:36)
[2018-10-09] MEDS: FENTANYL REMOVE PATCH NOTE XX SCH (12:32)
[2018-10-09] MEDS: FENTANYL 12 MCG PATCH TD SCH (12:32)
[2018-10-09] MEDS: ERGOCALCIFEROL 8,000UNIT/ML NG SCH (15:27)
[2018-10-09] MEDS: RIVAROXABAN 15 MG TABLET PO SCH (20:35)
[2018-10-10] MEDS: METOPROLOL TARTRATE 100 MG TABLET PO SCH ×3 (01:13→16:33)
[2018-10-10 04:00] VITALS: BP 97/71
[2018-10-10] MEDS: RANITIDINE 15 MG/ML ORAL SOL NG SCH (09:00)
[2018-10-10] MEDS: VERAPAMIL 120MG TABLET PO SCH ×2 (09:00→10:30)
[2018-10-10] MEDS: QUETIAPINE 25MG TABLET GT SCH ×2 (09:00→21:00)
[2018-10-10] MEDS: SODIUM CHLORIDE FLUSH 10ML SYR IVF SCH ×2 (09:00→21:25)
[2018-10-10] MEDS: LEVETIRACETAM 500 MG TABLET PO SCH ×2 (10:29→21:30)
[2018-10-10] MEDS: ENALAPRIL 5MG TABLET PO SCH ×2 (10:30→21:30)
[2018-10-10] MEDS: SPIRONOLACTONE 25 MG TABLET PO SCH (10:30)
[2018-10-10] MEDS: RIVAROXABAN 15 MG TABLET PO SCH ×2 (10:31→21:30)
[2018-10-10] MEDS: ERGOCALCIFEROL 8,000UNIT/ML NG SCH (16:32)
[2018-10-10] MEDS ORDERED: QUETIAPINE 100MG TABLET ONE (21:12)
[2018-10-11] MEDS: METOPROLOL TARTRATE 100 MG TABLET PO SCH ×3 (02:09→16:10)
[2018-10-11 04:00] VITALS: BP 112/62
[2018-10-11] MEDS: QUETIAPINE 25MG TABLET GT SCH ×2 (08:35→20:55)
[2018-10-11] MEDS: LEVETIRACETAM 500 MG TABLET PO SCH ×2 (08:36→20:55)
[2018-10-11] MEDS: VERAPAMIL 120MG TABLET PO SCH ×2 (08:36→22:39)
[2018-10-11] MEDS: RIVAROXABAN 15 MG TABLET PO SCH ×2 (08:37→20:55)
[2018-10-11] MEDS: SODIUM CHLORIDE FLUSH 10ML SYR IVF SCH ×2 (08:41→22:43)
[2018-10-11] MEDS: ERGOCALCIFEROL 8,000UNIT/ML NG SCH (16:09)
[2018-10-12] MEDS: METOPROLOL TARTRATE 100 MG TABLET PO SCH (01:01)
[2018-10-12 04:00] VITALS: BP 135/80
[2018-10-12] MEDS: LEVETIRACETAM 500 MG TABLET PO SCH (08:18)
[2018-10-12] MEDS: RIVAROXABAN 15 MG TABLET PO SCH (08:18)
[2018-10-12] MEDS: QUETIAPINE 25MG TABLET GT SCH (08:18)
[2018-10-12] MEDS: VERAPAMIL 120MG TABLET PO SCH (08:18)
[2018-10-12] MEDS: SODIUM CHLORIDE FLUSH 10ML SYR IVF SCH (08:18)
[2018-10-12] MEDS ORDERED: ERGO80004 NG (10:30)
[2018-10-12] MEDS ORDERED: VERA120T5 PO (10:30)
[2018-10-12] MEDS ORDERED: LEVE500T53 PO (10:30)
[2018-10-12] MEDS ORDERED: RIVA15TA PO (10:30)
[2018-10-12] MEDS ORDERED: METO-99 PO (10:30)
[2018-10-12] MEDS ORDERED: QUET25TA GT (10:30)
[2018-10-12] MEDS ORDERED: METOPROLOL TARTRATE 100 MG TABLET PO SCH (13:00)
== END 2018-10-12 13:21 | DRG 3 ==
LOC: ED 20:55 → INTOOBSV 20:58 → EDIP 20:58 → ED 21:14 → 3NE 22:40 → CCU 08-29 12:01 → OBSVTOIN 08-29 13:07 → CCU 09-22 01:30 → ICU 10-09 07:30 → CCU 10-10 11:54
PROVIDERS: ADMIT Family Medicine; ATTEND Internal Medicine
PROC: 0BH17EZ Insertion of Endotracheal Airway into Trachea, Via Natural or Artificial Opening (ICD-10-PCS; principal; 2018-08-29)
PROC: 5A1955Z Respiratory Ventilation, Greater than 96 Consecutive Hours (ICD-10-PCS; 2018-08-29)
PROC: 05HY33Z Insertion of Infusion Device into Upper Vein, Percutaneous Approach (ICD-10-PCS; 2018-08-29)
PROC: 5A12012 Performance of Cardiac Output, Single, Manual (ICD-10-PCS; 2018-08-29)
PROC: 30233R1 Transfusion of Nonautologous Platelets into Peripheral Vein, Percutaneous Approach (ICD-10-PCS; 2018-09-09)
PROC: 0B9C8ZZ Drainage of Right Upper Lung Lobe, Via Natural or Artificial Opening Endoscopic (ICD-10-PCS; 2018-09-10)
PROC: 0B113F4 Bypass Trachea to Cutaneous with Tracheostomy Device, Percutaneous Approach (ICD-10-PCS; 2018-09-10)
PROC: 0B9G8ZZ Drainage of Left Upper Lung Lobe, Via Natural or Artificial Opening Endoscopic (ICD-10-PCS; 2018-09-10)
PROC: 0B9D8ZZ Drainage of Right Middle Lung Lobe, Via Natural or Artificial Opening Endoscopic (ICD-10-PCS; 2018-09-10)
PROC: 0B9H8ZZ Drainage of Lung Lingula, Via Natural or Artificial Opening Endoscopic (ICD-10-PCS; 2018-09-10)
PROC: 0B9F8ZZ Drainage of Right Lower Lung Lobe, Via Natural or Artificial Opening Endoscopic (ICD-10-PCS; 2018-09-10)
PROC: 0B9J8ZZ Drainage of Left Lower Lung Lobe, Via Natural or Artificial Opening Endoscopic (ICD-10-PCS; 2018-09-10)
PROC: 0B928ZZ Drainage of Carina, Via Natural or Artificial Opening Endoscopic (ICD-10-PCS; 2018-09-10)
PROC: 0B918ZZ Drainage of Trachea, Via Natural or Artificial Opening Endoscopic (ICD-10-PCS; 2018-09-10)
PROC: 0B938ZZ Drainage of Right Main Bronchus, Via Natural or Artificial Opening Endoscopic (ICD-10-PCS; 2018-09-10)
PROC: 0B978ZZ Drainage of Left Main Bronchus, Via Natural or Artificial Opening Endoscopic (ICD-10-PCS; 2018-09-10)
PROC: 0DH64UZ Insertion of Feeding Device into Stomach, Percutaneous Endoscopic Approach (ICD-10-PCS; 2018-09-15)
PROC: 0DHA3UZ Insertion of Feeding Device into Jejunum, Percutaneous Approach (ICD-10-PCS; 2018-09-15)
PROC: 0T9B70Z Drainage of Bladder with Drainage Device, Via Natural or Artificial Opening (ICD-10-PCS; 2018-09-25)
DX: I63.9 Cerebral infarction, unspecified (principal); J69.0 Pneumonitis due to inhalation of food and vomit; E43 Unspecified severe protein-calorie malnutrition; G93.41 Metabolic encephalopathy; I46.9 Cardiac arrest, cause unspecified; J96.21 Acute and chronic respiratory failure with hypoxia; E23.2 Diabetes insipidus; E87.1 Hypo-osmolality and hyponatremia; G62.81 Critical illness polyneuropathy; G93.1 Anoxic brain damage, not elsewhere classified; I42.9 Cardiomyopathy, unspecified; I82.612 Acute embolism and thrombosis of superficial veins of left upper extremity; I82.621 Acute embolism and thrombosis of deep veins of right upper extremity; N39.0 Urinary tract infection, site not specified; Z99.11 Dependence on respirator [ventilator] status; B95.2 Enterococcus as the cause of diseases classified elsewhere; D69.6 Thrombocytopenia, unspecified; E83.42 Hypomagnesemia; G43.A0 Cyclical vomiting, in migraine, not intractable; M79.7 Fibromyalgia; E83.39 Other disorders of phosphorus metabolism; E55.9 Vitamin D deficiency, unspecified; E83.51 Hypocalcemia; E86.0 Dehydration; F12.90 Cannabis use, unspecified, uncomplicated; F17.210 Nicotine dependence, cigarettes, uncomplicated; F41.1 Generalized anxiety disorder; G40.901 Epilepsy, unspecified, not intractable, with status epilepticus; I50.9 Heart failure, unspecified; I11.0 Hypertensive heart disease with heart failure; I95.1 Orthostatic hypotension; K44.9 Diaphragmatic hernia without obstruction or gangrene; K21.9 Gastro-esophageal reflux disease without esophagitis; K31.89 Other diseases of stomach and duodenum; Z51.5 Encounter for palliative care; Z79.01 Long term (current) use of anticoagulants; Z87.01 Personal history of pneumonia (recurrent); Z87.11 Personal history of peptic ulcer disease; Z90.49 Acquired absence of other specified parts of digestive tract; Z90.710 Acquired absence of both cervix and uterus; Z98.49 Cataract extraction status, unspecified eye; Z91.040 Latex allergy status; Z88.0 Allergy status to penicillin; Z88.6 Allergy status to analgesic agent; Z88.2 Allergy status to sulfonamides; Z88.5 Allergy status to narcotic agent; Z88.8 Allergy status to other drugs, medicaments and biological substances; Z79.899 Other long term (current) drug therapy
CPT/HCPCS: 36415; 36600; 74018; 74340; 99291; J3475; J3490; J7620; J7644; 70450; 70553; 71045; 71275; 74177; 80048; 80053; 80061; 80185; 80307; 81001; 81003; 82040; 82088; 82140; 82306; 82330; 82436; 82533; 82542; 82607; 82803; 82962; 83615; 83735; 83880; 83930; 83935; 83970; 84100; 84132; 84133; 84134; 84244; 84300; 84439; 84443; 84478; 84484; 85014; 85018; 85025; 85049; 85379; 85730; 86022; 86850; 86900; 87040; 87070; 87077; 87081; 87086; 87186; 87205; 92950; 93005; 93306; 93308; 93325; 93970; 94002; 94003; 94640; 94667; 94668; 95819; 95951; 96372; 96374; 96375; A9585; B4087; G0378; J0153; J0610; J0696; J1100; J1165; J1644; J1650; J1815; J1953; J2020; J2250; J2405; J2550; J2597; J2704; J3010; J3411; J3480; J3486; Q9967; 29105; C9113; J0883; J1652; J1720; J2060; J2765; J3420; J7030; J7040; J7050; P9035